=== PATIENT | female | born 1990 | race Caucasian/White ===

== ENCOUNTER → 2017-01-12 | Outpatient (CLI) | payer BC, MEDICAID ==
--- NOTE | 2017-01-12 13:35 | Diagnostic Imaging Report ---
EXAMINATION: PET-CT. TECHNIQUE: Serum glucose level at the time of the study is: 97 mg/dL. 11.5 mCi of FDG was administered intravenously followed by obtaining PET images with corresponding noncontrast CT scan images. The CT scan was performed for anatomic correlation and attenuation correction and was not performed according to the diagnostic protocol of the areas covered. The scan was performed from the head to mid thighs. INDICATION: Cervical cancer initial staging. FINDINGS: Physiologic uptake in the brain is noted in a symmetric fashion. Activity in the neck and the orbits and the nasopharynx and oral cavity does not appear to correlate with a concerning soft tissue mass and is probably physiologic. There are also somewhat symmetric areas of activity seen in fatty tissue in the neck and upper chest compatible with brown fat activity with no evidence of metastasis. No suspicious hypermetabolic mass in the chest is seen. In the abdomen and pelvis, there is an intensely hypermetabolic mass seen in the area of the cervix with a maximum SUV of 20. This appears to correlate with fullness in the region of the cervix seen on CT scan with rough correlating measurements of 5 x 4 cm. Other areas of activity seen in the anterior abdominal wall are related to postsurgical changes from recent section with no suspicious hypermetabolic regional lymph node or metastatic mass in the abdomen or pelvis seen. Urinary tract activity is related to tracer excretion is noted in the bladder, kidneys, and ureters. IMPRESSION: Intensely hypermetabolic mass with approximate axial measurements of 5 x 4 cm in the region of the cervix is suggestive of an underlying cervical cancer neoplasm with no evidence of regional lymphadenopathy or metastatic disease. Dictated by: Dictated on workstation # [id number]
== END ==
LOC: RAD 09:33 → EDUNIT# 09:45
PROVIDERS: ATTEND Obstetrics & Gynecology Gynecologic Oncology
DX: C53.9 Malignant neoplasm of cervix uteri, unspecified (principal)

== ENCOUNTER 2017-01-15 12:25 | Outpatient (RCR) | payer BC, MEDICAID ==
[2017-01-15 14:51] LABS: BASOPHILS % (AUTO) 0 % (0-10); EOSINOPHILS # (AUTO) 0.2 10^3/uL (0.0-0.3); EOSINOPHILS % (AUTO) 2 % (0-10); LYMPHOCYTES # (AUTO) 2.4 X 10^3 (1.0-4.0); LYMPHOCYTES % (AUTO) 23 % (12-44); MEAN CORPUSCULAR HEMOGLOBIN 30 PG (25-34); MEAN CORPUSCULAR HGB CONC 33 G/DL (32-36); MEAN CORPUSCULAR VOLUME 91 FL (80-99); MEAN PLATELET VOLUME 9.6 FL (7.4-10.4); MONOCYTES # (AUTO) 0.7 X 10^3 (0.0-1.0); MONOCYTES % (AUTO) 7 % (0-12); NEUTROPHILS # (AUTO) 7.2 X 10^3 (1.8-7.8); NEUTROPHILS % (AUTO) 68 % (42-75); PLATELET COUNT 319 10^3/uL (130-400); RED CELL DISTRIBUTION WIDTH 11.9 % (10.0-14.5); WHITE BLOOD COUNT 10.5 10^3/uL (4.3-11.0)
[2017-01-15 15:08] LABS: ALANINE AMINOTRANSFERASE 27 U/L (0-55); ANION GAP 10 MMOL/L (5-14); ASPARTATE AMINO TRANSFERASE 22 U/L (5-34); BILIRUBIN,TOTAL 0.4 MG/DL (0.1-1.0); BLOOD UREA NITROGEN 11 MG/DL (7-18); BUN/CREATININE RATIO 14; CALCIUM 9.4 MG/DL (8.5-10.1); CARBON DIOXIDE 24 MMOL/L (21-32); CHLORIDE 106 MMOL/L (98-107); CREATININE SERUM 0.78 MG/DL (0.60-1.30); GFR ESTIMATED > 60; GLUCOSE 85 MG/DL (70-105); SODIUM 140 MMOL/L (135-145); TOTAL PROTEIN 7.9 GM/DL (6.4-8.2)
== END 2017-01-16 | disposition home or self-care (01) ==
LOC: ONC 12:25
PROVIDERS: ATTEND Internal Medicine Hematology & Oncology
DX: C53.9 Malignant neoplasm of cervix uteri, unspecified (principal)
CPT/HCPCS: 36415; 80053; 85025; 86304; 99214

== ENCOUNTER 2017-01-20 13:13 | Outpatient (CLI) | payer BC, MEDICAID ==
[~2017-01-20] VITALS: Ht 165.1 cm; Wt 81.2 kg
== END 2017-01-20 15:05 ==
LOC: PREOP 13:13
PROVIDERS: ATTEND Surgery
DX: Z95.828 Presence of other vascular implants and grafts; Z01.818 Encounter for other preprocedural examination

== ENCOUNTER 2017-01-21 09:34 | Day surgery (SDC) | payer BC, MEDICAID ==
[~2017-01-21] VITALS: Ht 165.1 cm; Wt 81.2 kg
--- OUTSIDE RECORDS SUMMARY | 2017-01-21 09:39 | XMS REPORT ---
Author Author Stella Bullock [facility] Address [address] [place], [place] [id number] Care Team Providers Care Tap And Die Maker Technician Name Role Phone Stella Bullock PCP Unavailable MarlynprestonJeimy curielerine PreferredProvider [phone] Allergies and Adverse Reactions Name Reaction Notes NO KNOWN DRUG ALLERGIES Plan of Treatment Planned Activity Comments Planned Date Planned Time Plan/Goal Ultrasound, OB complete >14 weeks 09/07/2016 12:00 AM *Thin layer pap with reflex to HPV ; cervical/vaginal (ThinPrep or Surepath) 09/02/2016 12:00 AM Gonorrhea 09/02/2016 12:00 AM Chlamydia 09/02/2016 12:00 AM HIV-1 antibody 09/02/2016 12:00 AM UA with Culture and Sensitivity 09/02/2016 12:00 AM panel (CBC with differential, automated, Hepatitis B surface antigen ( HBsAg), Rubella antibody, RBC antibody screen, Blood typing (ABO and Rh(D), RPR w/ Reflex to TP 09/02/2016 12:00 AM HEPATITIS C AB 09/02/2016 12:00 AM TRICHOMONAS AMPLIFIED 09/02/2016 12:00 AM Medications Name Start Date Expiration Date SIG Comments Viberzi 75 mg oral tablet 05/21/2016 08/19/2016 take 1 tablet (75 mg) by oral route 2 times per day for 30 days Discontinued Name Start Date Discontinued Date SIG Comments labetalol Oral Tablet 100 mg 07/09/2014 take 1 tablet (100 mg) by oral route 2 times per day Oral 07/09/2014 amoxicillin Oral Capsule 500 mg 07/09/2014 Seasonique 0.15 mg-30 mcg (84)/10 mcg (7) oral tablets,dose pack,3 month 201609/02/2016 take 1 tablet by oral route once daily for 90 days Problem List Description Status Onset Polycystic Ovaries Active 07/09/2014 Ovarian Cyst Active 07/09/2014 Vital Signs Date Time BP-Sys(mm[Hg] BP-Kate(mm[Hg]) HR(bpm) RR(rpm) Temp WT HT HC BMI BSA BMI Percentile O2 Sat(%) 09/02/2016 2:32:00 PM 136 mmHg 85 mmHg 123 bpm 98.7 F 180.5 lbs 65 in 30.04 kg/m2 1.94 m2 99 % 07/08/2016 2:10:00 PM 142 mmHg 86 mmHg 112 bpm 98.9 F 180.5 lbs 65 in 30.0365 kg/m 1.9377 m 05/21/2016 2:47:00 PM 118 mmHg 70 mmHg 82 bpm 18 rpm 98.4 F 180.375 lbs 65 in 30.02 kg/m2 1.94 m2 99 % 07/09/2014 9:21:00 AM 124 mmHg 70 mmHg 80 bpm 97.8 F 186 lbs 65 in 30.9517 kg/m 1.967 m 07/28/2011 9:10:00 AM 110 mmHg 70 mmHg 120 bpm 98.6 F 171.375 lbs 96 % 07/20/2011 11:11:00 AM 118 mmHg 75 mmHg 98 bpm 97.5 F 166.25 lbs 97 % 07/13/2011 12:12:00 PM 100 mmHg 78 mmHg 95 bpm 97.4 F 165.25 lbs 98 % 06/29/2011 10:26:00 AM 95 mmHg 65 mmHg 85 bpm 97.6 F 162.375 lbs 98 % 06/15/2011 11:07:00 AM 112 mmHg 65 mmHg 71 bpm 97.8 F 157.5 lbs 100 % 05/18/2011 11:25:00 AM 120 mmHg 70 mmHg 109 bpm 97.9 F 150.25 lbs 98 % 04/14/2011 3:39:00 PM 100 bpm 97.8 F 142 lbs 98 % 04/09/2011 2:34:00 PM 100 mmHg 60 mmHg 88 bpm 98.4 F 141.375 lbs 98 % 03/17/2011 5:04:00 PM 98 mmHg 65 mmHg 103 bpm 98.5 F 100 % 03/09/2011 4:38:00 PM 110 mmHg 70 mmHg 96 bpm 98.9 F 135.375 lbs 99 % 02/24/2011 4:14:00 PM 118 mmHg 60 mmHg 123 bpm 98.3 F 135.125 lbs 99 % Social History Name Description Comments Alcohol Use - Occasional Caffeine Never Tobacco Never smoker History of Procedures Date Ordered Description Order Status 04/14/2011 12:00 AM HERPES SIMPLEX 2 AG IF Reviewed 04/14/2011 12:00 AM HERPES SIMPLEX 1 AG IF Reviewed 05/18/2011 12:00 AM GLUCOSE TEST Reviewed 05/18/2011 12:00 AM METABOLIC PANEL TOTAL CA Reviewed 06/29/2011 12:00 AM COMPREHEN METABOLIC PANEL Reviewed 06/29/2011 12:00 AM CULTURE OTHR SPECIMN AEROBIC Reviewed 06/29/2011 12:00 AM ROUTINE VENIPUNCTURE Reviewed 07/16/2016 12:00 AM OB US >/=14 WKS SNGL FETUS Reviewed 04/14/2011 12:00 AM BIOPSY SKIN LESION Reviewed 07/09/2014 12:00 AM CHORIONIC GONADOTROPIN TEST Reviewed 07/09/2014 12:00 AM US EXAM PELVIC COMPLETE Reviewed 07/09/2014 12:00 AM ASSAY OF PROLACTIN Reviewed 07/09/2014 12:00 AM IMMUNOASSAY TUMOR CA 125 Reviewed 07/09/2014 12:00 AM LACTATE (LD) (LDH) ENZYME Reviewed 07/09/2014 12:00 AM ALPHA-FETOPROTEIN SERUM Reviewed Results Summary Date and Description Results 04/14/2011 11:32 AM SOURCE: VAGINAL 05/18/2011 12:31 PM GLUCOSE 69.0 mg/dLSODIUM 138.0 mmol/LPOTASSIUM 3.80 mmol/ LCHLORIDE 107.0 mmol/LCO2 19.0 mmol/LBUN 7.0 mg/dLCREATININE 0.50 mg/dLCALCIUM 9.0 mg/dLAGE 21 GFR NonAA 157 GFR AA 190 eGFR >60 mL/min/1.73 m2eGFR AA* >60 06/24/2011 12:35 PM WBC 10.1 RBC 3.78 HGB 11.90 g/dLHCT 34.50 %MCV 91.0 fLMCH 31.50 pgMCHC 34.50 g/dLRDW SD 40 RDW CV 12.10 %MPV 9.80 fLPLT 189 NRBC# 0.00 NRBC% 0.0 %NEUT 75.20 %%LYMP 16.90 %%MONO 7.10 %%EOS 0.60 %%BASO 0.20 %#NEUT 7.59 #LYMP 1.71 #MONO 0.72 #EOS 0.06 #BASO 0.02 MANUAL DIFF NOT IND RUBELLA 34.0 IU/mL 06/29/2011 12:55 PM GLUCOSE 83.0 mg/dLSODIUM 135.0 mmol/LPOTASSIUM 4.20 mmol/ LCHLORIDE 105.0 mmol/LCO2 19.0 mmol/LBUN 9.0 mg/dLCREATININE 0.60 mg/dLSGOT/AST 17.0 IU/LSGPT/ALT 11.0 IU/LALK PHOS 147.0 IU/LTOTAL PROTEIN 6.10 g/dLALBUMIN 3.60 g/dLTOTAL BILI 0.50 mg/dLCALCIUM 9.70 mg/dLAGE 21 GFR NonAA 127 GFR AA 154 eGFR >60 mL/min/1.73 m2eGFR AA* >60 07/09/2014 10:30 AM LDH 160.0 IU/LBETA HCG QUANT <1 MIU/MLLH 14.50 mIU/ mLProlactin 16.0 ng/mLCancer Antigen (CA) 125 12.20 U/mLAFP, Serum, Tumor Marker 1.60 ng/mL History Of Immunizations Not available. History of Past Illness Name Date of Onset Comments Anxiety Mitral Valve Disorders Polycystic Ovaries 07/09/2014 Ovarian Cyst 07/09/2014 Depression Vertigo Headache UTI Weight Change Numbness and Tingling Fractured bone PCOS (polycystic ovarian syndrome) , First Normal Apr 09 2011 2:35PM Condyloma Acuminatum Apr 09 2011 2:35PM Vaginal Lesion Apr 14 2011 4:28PM , First Normal Feb 24 2011 4:11PM , First Normal May 18 2011 11:36AM Leg cramps May 18 2011 11:36AM Mitral Valve Prolapse Mar 09 2011 4:34PM , First Normal Jun 29 2011 10:28AM , First Normal Jul 13 2011 12:14PM , First Normal Jul 28 2011 9:12AM , First Normal Jun 15 2011 11:16AM , First Normal Mar 17 2011 4:59PM Vulvar Lesion Apr 21 2011 10:00AM Left ovarian cyst Jul 09 2014 10:03AM Abnormal Uterine Bleeding Jul 09 2014 9:30AM Polycystic Ovaries Jul 09 2014 9:30AM Left Ovarian cyst Jul 09 2014 9:30AM Irritability Jul 09 2014 9:30AM PCOS (polycystic ovarian syndrome) May 21 2016 2:49PM Irritable bowel syndrome with diarrhea May 21 2016 2:49PM Amenorrhea May 21 2016 2:49PM Acute pelvic pain, female Jul 08 2016 3:12PM History of ovarian cyst Jul 08 2016 3:12PM PCOS (polycystic ovarian syndrome) Jul 08 2016 2:14PM Adnexal tenderness, left Jul 08 2016 2:14PM IBS (irritable bowel syndrome) Jul 08 2016 2:14PM Normal in multigravida in second trimester Sep 02 2016 2:50PM , confirmed, not first Sep 02 2016 2:38PM Late care affecting in second trimester Sep 02 2016 2: 38PM Payers Insurance Name Company Name Plan Name Plan Number Policy Number Policy Group Number Start Date BCBS [employer] [place] [id number] N/A Aetna [facility] [place] [id number] Thursday, 2011 BCBS [employer] [place] [id number] N/A History of Encounters Visit Date Visit Type Provider 09/02/2016 Office visit Stella Bullock SPECIAL PROCEDURE TECHNOLOGIST 07/08/[address] Paula Case MD 05/21/2016 Office visit Jeimy Garcia SPECIAL PROCEDURE TECHNOLOGIST 07/09/2014 Office visit 07/09/2014 Office visit Matt Travis MD 08/04/2011 [facility] David Izquierdo MD 07/28/2011 Office visit David Izquierdo MD 07/20/2011 Office visit David Izquierdo MD 07/13/2011 Office visit David Izquierdo MD 06/29/2011 Office visit David Izquierdo MD 06/15/2011 Office visit David Izquierdo MD 05/18/2011 Office visit David Izquierdo MD 04/14/2011 Procedures David Izquierdo MD 04/09/2011 Voided David Izquierdo MD 03/17/2011 Office visit David Izquierdo MD 03/09/2011 Office visit David Izquierdo MD 02/24/2011 Office visit David Izquierdo MD
--- OUTSIDE RECORDS SUMMARY | 2017-01-21 09:39 | XMS REPORT ---
Author Author Paula Case [facility] Address [address] [place], [place] [id number] Care Team Providers Care Primary Care Coordinator Name Role Phone Paula Case PCP Unavailable Jeimy Garciaerine PreferredProvider [phone] Allergies and Adverse Reactions Name Reaction Notes NO KNOWN DRUG ALLERGIES Plan of Treatment Planned Activity Comments Planned Date Planned Time Plan/Goal OB Complete Sono, Greater than or Equal to 14 weeks 07/16/2016 12:00 AM Medications Active Name Start Date Estimated Completion Date SIG Comments Seasonique 0.15 mg-30 mcg (84)/10 mcg (7) oral tablets,dose pack,3 month 201611/17/2016 take 1 tablet by oral route once daily for 90 days Viberzi 75 mg oral tablet 05/21/2016 08/19/2016 take 1 tablet (75 mg) by oral route 2 times per day for 30 days Discontinued Name Start Date Discontinued Date SIG Comments labetalol Oral Tablet 100 mg 07/09/2014 take 1 tablet (100 mg) by oral route 2 times per day Oral 07/09/2014 amoxicillin Oral Capsule 500 mg 07/09/2014 Problem List Description Status Onset Polycystic Ovaries Active 07/09/2014 Ovarian Cyst Active 07/09/2014 Vital Signs Date Time BP-Sys(mm[Hg] BP-Kate(mm[Hg]) HR(bpm) RR(rpm) Temp WT HT HC BMI BSA BMI Percentile O2 Sat(%) 07/08/2016 2:10:00 PM 142 mmHg 86 mmHg 112 bpm 98.9 F 180.5 lbs 65 in 30.04 kg/m2 1.94 m2 05/21/2016 2:47:00 PM 118 mmHg 70 mmHg 82 bpm 18 rpm 98.4 F 180.375 lbs 65 in 30.0157 kg/m 1.9371 m 99 % 07/09/2014 9:21:00 AM 124 mmHg 70 mmHg 80 bpm 97.8 F 186 lbs 65 in 30.95 kg/m2 1.97 m2 07/28/2011 9:10:00 AM 110 mmHg 70 mmHg [...] Reviewed 06/29/2011 12:00 AM ROUTINE VENIPUNCTURE Reviewed 04/14/2011 12:00 AM BIOPSY SKIN LESION Reviewed 07/09/2014 12:00 AM CHORIONIC GONADOTROPIN TEST Reviewed 07/09/2014 12:00 AM US EXAM PELVIC COMPLETE Reviewed 07/09/2014 12:00 AM ASSAY OF PROLACTIN Reviewed 07/09/2014 12:00 AM IMMUNOASSAY TUMOR CA 125 Reviewed 07/09/2014 12:00 AM LACTATE (LD) (LDH) ENZYME Reviewed 07/09/2014 12:00 AM ALPHA-FETOPROTEIN SERUM Reviewed Results Summary Data and Description Results 04/14/2011 11:32 AM SOURCE: [...] (irritable bowel syndrome) Jul 08 2016 2:14PM Payers Insurance Name Company Name Plan Name Plan Number Policy Number Policy Group Number Start Date [facility] [id number] N/A Aetna Aetna [facility] [id number] Thursday, 2011 BCBS [employer] [facility] [id number] N/A History of Encounters Visit Date Visit Type Provider 07/08/[address] Paula Case MD 05/21/2016 Office visit Jeimy Garcia APRN 07/09/2014 Office visit 07/09/2014 Office visit Matt Travis MD 08/04/2011 [facility] David Izquierdo MD 07/28/2011 Office visit [...]
--- OUTSIDE RECORDS SUMMARY | 2017-01-21 09:40 | XMS REPORT ---
Author Author Tej Dennis [facility] Address [address] [place], [place] [phone] Care Team Providers Care Etl Informatica Architect Name Role Phone Tej Dennis PCP Unavailable Jeimy Garcia PreferredProvider [phone] Allergies and Adverse Reactions Name Reaction Notes NO KNOWN DRUG ALLERGIES Plan of Treatment Planned Activity Comments Planned Date Planned Time Plan/Goal Ob Limited Sono 11/04/2016 12:00 AM Medications Active Name Start Date Estimated Completion Date SIG Comments Vitamin oral tablet take 1 tablet by oral route once daily Name Start Date Expiration Date SIG Comments [...] 04/14/2011 12:00 AM BIOPSY SKIN LESION Reviewed 09/07/2016 12:00 AM OB US >/=14 WKS SNGL FETUS Reviewed 09/02/2016 12:00 AM CYTOPATH C/V THIN LAYER Reviewed 09/02/2016 12:00 AM SPECIMEN HANDLING OFFICE-LAB Reviewed 09/02/2016 12:00 AM N.GONORRHOEAE DNA AMP PROB Reviewed 09/02/2016 12:00 AM CHLAMYDIA CULTURE Reviewed 09/02/2016 12:00 AM HIV-1ANTIBODY Reviewed 09/02/2016 12:00 AM URINALYSIS AUTO W/SCOPE Reviewed 09/02/2016 12:00 AM OBSTETRIC PANEL Reviewed 09/02/2016 12:00 AM HEPATITIS C AB TEST Reviewed 09/02/2016 12:00 AM Progenity Testing Reviewed 09/02/2016 12:00 AM TRICHOMONAS VAGINALIS AMPLIF Reviewed 10/28/2016 12:00 AM GLUCOSE TOLERANCE TEST (GTT) Returned 10/28/2016 12:00 AM COMPLETE CBC W/AUTO DIFF WBC Returned 07/09/2014 12:00 AM CHORIONIC GONADOTROPIN TEST Reviewed [...] 12.20 U/mLAFP, Serum, Tumor Marker 1.60 ng/mL 09/02/2016 3:45 PM HEPATITIS C 0.08 COLOR YELLOW APPEARANCE CLEAR SPEC GRAV >= 1.030 pH 5.5 PROTEIN TRACE GLUCOSE NEGATIVE mg/dLKETONE TRACE BILIRUBIN NEGATIVE BLOOD NEGATIVE NITRITE NEGATIVE LEUK SCREEN NEGATIVE WBC/HPF 0-5 RBC/ HPF NEGATIVE CASTS/LPF FEW HYALINE /LPFCRYSTALS NEGATIVE MUCOUS THRDS 2++ BACTERIA 1+ EPITH CELLS FEW SQUAMOUS /HPFTRICHOMONAS NEGATIVE YEAST NEGATIVE CULT ORDERED YES HIV AG/AB COMBO 0.10 WBC 10.3 RBC 4.29 HGB 12.80 g/dLHCT 37.70 %MCV 88.0 fLMCH 29.80 pgMCHC 34.0 g/dLRDW SD 38 RDW CV 12.0 %MPV 9.70 fLPLT 289 NRBC# 0.00 NRBC% 0.0 %NEUT 75.0 %%LYMP 17.30 %%MONO 5.60 %%EOS 0.70 %%BASO 0.40 %#NEUT 7.74 #LYMP 1.78 #MONO 0.58 #EOS 0.07 #BASO 0.04 MANUAL DIFF NOT IND RPR Non Reactive HBsAg Screen Negative Rubella Antibodies, IgG 3.33 Index 10/28/2016 3:25 PM WBC 10.9 RBC 4.06 HGB 12.40 g/dLHCT 37.0 %MCV 91.0 fLMCH 30.50 pgMCHC 33.50 g/dLRDW SD 40 RDW CV 12.10 %MPV 8.90 fLPLT 255 NRBC# 0.00 NRBC% 0.0 %NEUT 73.20 %%LYMP 16.90 %%MONO 6.80 %%EOS 0.70 %%BASO 0.30 %#NEUT 7.95 #LYMP 1.83 #MONO 0.74 #EOS 0.08 #BASO 0.03 MANUAL DIFF SEE BELOW SEGS 67 BANDS 16 LYMPHS 15 MONOS 2 ANISO 1+ History Of Immunizations Not available. History of [...] second trimester Sep 02 2016 2: 38PM Normal in multigravida in third trimester Oct 28 2016 2:43PM Pyelectasis of fetus on ultrasound Oct 28 2016 4:28PM Normal in multigravida in third trimester Oct 28 2016 4:28PM Payers Insurance Name Company Name Plan Name Plan Number Policy Number Policy Group Number Start Date BCBS [employer] [place] [id number] N/A Aetna [facility] [id number] Thursday, 2011 BCBS [employer] [place] [id number] N/A History of Encounters Visit Date Visit Type Provider 10/28/2016 Office visit Tej Dennis MD 09/21/[address] Paula Case MD 09/02/2016 Office visit Stella Bullock EBAY RESELLER 07/08/[address] Paula Case MD 05/21/2016 Office visit Jeimy Garcia EBAY RESELLER 07/09/2014 Office visit 07/09/2014 Office visit Matt Travis MD 08/04/2011 [facility] David Izquierdo MD 07/28/2011 Office [...]
--- OUTSIDE RECORDS SUMMARY | 2017-01-21 09:40 | XMS REPORT ---
Author Author Paula Case [facility] Address [address] [place], [place] [id number] Care Team Providers Care Wood Scaler Name Role Phone Paula Case PCP Unavailable Jeimy Garcia PreferredProvider [phone] Allergies and Adverse Reactions Name Reaction Notes NO KNOWN DRUG ALLERGIES Plan of Treatment Planned Activity Comments Planned Date Planned Time Plan/Goal TRICHOMONAS AMPLIFIED 09/02/2016 12:00 AM Medications Active Name Start Date [...] Reviewed 09/02/2016 12:00 AM Progenity Testing Reviewed 07/09/2014 12:00 AM CHORIONIC GONADOTROPIN TEST [...] Screen Negative Rubella Antibodies, IgG 3.33 Index History Of Immunizations Not available. History of [...] Number Policy Group Number Start Date BCBS [facility] [id number] N/A Aetna Aetna [facility] [id number] Thursday, 2011 [facility] [id number] N/A History of Encounters Visit Date Visit Type Provider 09/21/[address] Paula Case MD 09/02/2016 Office visit Stella Bullock RUMPER 07/08/[address] Paula Case MD 05/21/2016 Office visit Jeimy Garcia RUMPER 07/09/2014 Office visit 07/09/2014 Office visit Matt Travis MD 08/04/2011 [facility] David Izquierdo MD 07/28/2011 Office visit David [...]
--- OUTSIDE RECORDS SUMMARY | 2017-01-21 09:40 | XMS REPORT ---
Author Author Tej Dennis [facility] Address [address] [place], [place] [address] Care Team Providers Care Superintendent Mechanical Name Role Phone Tej Dennis PCP Unavailable Jeimy Garcia PreferredProvider [phone] Allergies and Adverse Reactions Name Reaction Notes NO KNOWN DRUG ALLERGIES Plan of Treatment Planned Activity Comments Planned Date Planned Time Plan/Goal Bile salts measurement 12/08/2016 12:00 AM Medications Active Name Start Date Estimated Completion Date SIG Comments Vitamin oral tablet take 1 tablet by oral route once daily hydroxyzine HCl 25 mg oral tablet 12/08/2016 12/22/2016 take 1 tablet by oral route once daily for 14 days. May increase dose to 1 tablet twice daily if itching persists. metronidazole 500 mg oral tablet 12/08/2016 12/15/2016 take 1 tablet by oral route 2 times a day for 7 days Name Start Date Expiration Date SIG Comments [...] HC BMI BSA BMI Percentile O2 Sat(%) 12/15/2016 3:51:00 PM 139 mmHg 95 mmHg 136 bpm 99.9 F 200 lbs 65 in 33.28 kg/m2 2.04 m2 99 % 09/02/2016 2:32:00 PM 136 mmHg 85 mmHg 123 bpm 98.7 F 180.5 lbs 65 in 30.0365 kg/m 1.9377 m 99 % 07/08/2016 2:10:00 PM 142 mmHg [...] 10/28/2016 12:00 AM GLUCOSE TOLERANCE TEST (GTT) Reviewed 10/28/2016 12:00 AM COMPLETE CBC W/AUTO DIFF WBC Reviewed 10/28/2016 12:00 AM Type and screen Reviewed 11/04/2016 12:00 AM OB US LIMITED FETUS(S) Reviewed 11/23/2016 12:00 AM TDAP VACCINE 7 YRS/> IM Reviewed 11/23/2016 12:00 AM IMMUNIZATION ADMIN Reviewed 12/08/2016 12:00 AM HEPATIC FUNCTION PANEL Returned 07/09/2014 12:00 AM CHORIONIC GONADOTROPIN TEST [...] 190 eGFR >60 mL/min/1.73 m2eGFR AA* >60 06/29/2011 12:55 PM GLUCOSE 83.0 mg/dLSODIUM 135.0 mmol/LPOTASSIUM 4.20 mmol/ LCHLORIDE 105.0 mmol/LCO2 19.0 mmol/LBUN 9.0 mg/dLCREATININE 0.60 mg/dLSGOT/AST 17.0 IU/LSGPT/ALT 11.0 IU/LALK PHOS 147.0 IU/LTOTAL PROTEIN 6.10 g/dLALBUMIN 3.60 g/dLTOTAL BILI 0.50 mg/dLCALCIUM 9.70 mg/dLAGE 21 GFR NonAA 127 GFR AA 154 eGFR >60 mL/min/1.73 m2eGFR AA* >60 07/09/2014 10:30 AM LDH 160.0 IU/LBETA HCG QUANT <1 MIU/MLProlactin 16.0 ng/ mLCancer Antigen (CA) 125 12.20 U/mLAFP, Serum, Tumor [...] MONOS 2 ANISO 1+ History Of Immunizations Name Date Admin Mfg Name Mfg Code Trade Name Lot# Route Inj Vis Given Vis Pub CVX Tdap 11/23/2016 Biographicon SKB BOOSTRIX [id number] Intramuscular Right Deltoid 11/23/2016 06/12/2014 115 History of Past Illness Name Date of [...] in third trimester Oct 28 2016 4:28PM Need for Tdap vaccine Nov 23 2016 3:37PM Diseases of the skin and subcutaneous tissue complicating , third trimester Dec 08 2016 2:40PM Pruritus, unspecified Dec 08 2016 2:40PM Payers Insurance Name Company Name Plan Name Plan Number Policy Number Policy Group Number Start Date BCBS [employer] [place] [id number] N/A [facility] [id number] Thursday, 2011 BCBS [employer] [facility] [id number] N/A History of Encounters Visit Date Visit Type Provider 12/15/2016 Office visit Tej Dennis MD 12/08/2016 Office visit Tej Dennis MD 11/23/2016 Office visit Tej Dennis MD 10/28/2016 Office visit Tej Dennis MD 09/21/[address] Paula Case MD 09/02/2016 Office visit Stella Bullock CONTACT LENS CUTTER 07/08/[address] Paula Case MD 05/21/2016 Office visit Jeimy Garcia CONTACT LENS CUTTER 07/09/2014 Office visit 07/09/2014 Office visit Matt Travis MD 08/04/2011 [facility] David Izquierdo MD 07/28/2011 Office visit [...]
--- OUTSIDE RECORDS SUMMARY | 2017-01-21 09:41 | XMS REPORT ---
Author Author Tej Dennis [facility] Address [address] [place], [place] [id number] Care Team Providers Care Advanced Practice Nurse Name Role Phone Tej Dennis PCP Unavailable Jeimy Garcia PreferredProvider [phone] Allergies and Adverse Reactions Name Reaction Notes NO KNOWN DRUG ALLERGIES Plan of Treatment Planned Activity Comments Planned Date Planned Time Plan/Goal Cervical mass 01/01/2017 9:30 AM Medications Active Name Start Date Estimated Completion Date SIG Comments Vitamin oral tablet take 1 tablet by oral route once daily Name Start Date Expiration Date SIG Comments Viberzi 75 mg oral tablet 05/21/2016 08/19/2016 take 1 tablet (75 mg) by oral route 2 times per day for 30 days hydroxyzine HCl 25 mg oral tablet 12/08/2016 12/22/2016 take 1 tablet by oral route once daily for 14 days. May increase dose to 1 tablet twice daily if itching persists. metronidazole 500 mg oral tablet 12/08/2016 12/15/2016 take 1 tablet by oral route 2 times a day for 7 days Discontinued Name Start Date Discontinued Date [...] HC BMI BSA BMI Percentile O2 Sat(%) 12/24/2016 11:37:00 AM 141 mmHg 91 mmHg 100 bpm 99.4 F 183 lbs 65 in 30.45 kg/m2 1.95 m2 12/15/2016 3:51:00 PM 139 mmHg 95 mmHg 136 bpm 99.9 F 200 lbs 65 in 33.2814 kg/m 2.0397 m 99 % 09/02/2016 2:32:00 PM 136 mmHg [...] AM IMMUNIZATION ADMIN Reviewed 12/08/2016 12:00 AM MASS SPECTROMETRY QUANT Reviewed 12/08/2016 12:00 AM HEPATIC FUNCTION PANEL Reviewed 12/15/2016 12:00 AM CULTURE SCREEN ONLY Returned 12/24/2016 12:00 AM URINALYSIS AUTO W/SCOPE Returned 07/09/2014 12:00 AM CHORIONIC GONADOTROPIN TEST [...] 16 LYMPHS 15 MONOS 2 ANISO 1+ 12/08/2016 3:02 PM SGOT/AST 17.0 IU/LSGPT/ALT 17.0 IU/LALK PHOS 150.0 IU/ LTOTAL PROTEIN 7.0 g/dLALBUMIN 3.50 g/dLTOTAL BILI 0.40 mg/dLDIRECT BILI 0.20 mg /dLINDIRECT BILI 0.20 mg/dL History Of Immunizations Name Date Admin Mfg Name Mfg Code Trade Name Lot# Route Inj Vis Given Vis Pub CVX Tdap 11/23/2016 GlaxoSmimmatics biotechnologiesine SKB BOOSTRIX [id number] Intramuscular Right Deltoid 11/23/2016 [...] 2:40PM Pruritus, unspecified Dec 08 2016 2:40PM screening for streptococcus B Dec 15 2016 4:16PM Encounter for full-term uncomplicated delivery Dec 15 2016 3:52PM Outcome of delivery, unspecified Dec 15 2016 3:52PM Liver and biliary tract disorders in , third trimester Dec 15 2016 3 :52PM Obstruction of bile duct Dec 15 2016 3:52PM Cervical mass Dec 15 2016 3:52PM 36 weeks gestation of Dec 15 2016 3:52PM Dysuria Dec 24 2016 11:41AM Post- Follow-Up Dec 24 2016 11:41AM Payers Insurance Name Company Name Plan Name Plan Number Policy Number Policy Group Number Start Date BCBS [employer] [place] [id number] N/A [facility] Comm Plan of [id number] N/A Aetna Aetna [facility] [id number] Thursday, 2011 BCBS [employer] [place] [id number] N/A History of Encounters Visit Date Visit Type Provider 12/24/2016 Office visit Tej Dennis MD 12/16/[address] [facility] [address] Paula Case MD 12/15/2016 Office visit Tej Dennis MD 12/08/2016 Office visit Tej Dennis MD 11/23/2016 Office visit Tej Dennis MD 10/28/2016 Office visit Tej Dennis MD 09/21/[address] Paula Case MD 09/02/2016 Office visit Stella Bullock MANGA ARTIST 07/08/[address] Paula Case MD 05/21/2016 Office visit Jeimy Garcia MANGA ARTIST 07/09/2014 Office visit 07/09/2014 Office visit Matt [...]
--- OUTSIDE RECORDS SUMMARY | 2017-01-21 09:42 | XMS REPORT ---
Author Author Tej Dennis [facility] Address [address] [place], [place] [phone] Care Team Providers Care Talent Development Coordinator Name Role Phone Tej Dennis PCP Unavailable Jeimy Garcia PreferredProvider [phone] Allergies and Adverse Reactions Name Reaction Notes NO KNOWN DRUG ALLERGIES Plan of Treatment Planned Activity Comments Planned Date Planned Time Plan/Goal Bile salts measurement 12/08/2016 12:00 AM Group B strep culture 12/15/2016 12:00 AM Medications Active Name Start Date [...] Vis Given Vis Pub CVX Tdap 11/23/2016 GlaxDobango SKB BOOSTRIX [id number] Intramuscular Right Deltoid 11/23/2016 [...] weeks gestation of Dec 15 2016 3:52PM Payers Insurance Name Company Name Plan Name Plan Number Policy Number Policy Group Number Start Date [facility] [id number] N/A Aetna [facility] [id number] Thursday, 2011 BCBS [employer] [place] [id number] N/A History of Encounters Visit Date Visit Type Provider 12/15/2016 Office visit Tej Dennis MD 12/08/2016 Office visit Tej Dennis MD 11/23/2016 Office visit Tej Dennis MD 10/28/2016 Office visit Tej Dennis MD 09/21/[address] Paula Case MD 09/02/2016 Office visit Stella Bullock ACID TANK LINER 07/08/[address] Paula Case MD 05/21/2016 Office visit Jeimy Garcia ACID TANK LINER 07/09/2014 Office visit 07/09/2014 Office visit Matt [...]
--- OUTSIDE RECORDS SUMMARY | 2017-01-21 09:42 | XMS REPORT ---
Author Author Tej Dennis [facility] Address [address] [place], [place] [address] Care Team Providers Care Bobbin Washer Name Role Phone Tej Dennis PCP Unavailable Jeimy Garcia PreferredProvider [phone] Allergies and Adverse Reactions Name Reaction Notes NO KNOWN DRUG ALLERGIES Plan of Treatment Planned Activity Comments Planned Date Planned Time Plan/Goal GLUCOSE 50 gm 10/28/2016 12:00 AM CBC With Auto Differential 10/28/2016 12:00 AM Medications Active Name Start Date [...] 09/02/2016 12:00 AM TRICHOMONAS VAGINALIS AMPLIF Reviewed 07/09/2014 12:00 AM CHORIONIC GONADOTROPIN TEST [...] in third trimester Oct 28 2016 2:43PM Payers Insurance Name Company Name Plan Name Plan Number Policy Number Policy Group Number Start Date [facility] [id number] N/A Aetna Aetna [facility] [id number] Thursday, 2011 BCBS Bcbs [facility] [id number] N/A History of Encounters Visit Date Visit Type Provider 10/28/2016 Office visit Tej Dennis MD 09/21/[address] Paula Case MD 09/02/2016 Office visit Stella Bullock ELEVATED GUARD 07/08/[address] Paula Case MD 05/21/2016 Office visit Jeimy Ghazala Garcia ELEVATED GUARD 07/09/2014 Office visit 07/09/2014 Office visit Matt [...]
--- OUTSIDE RECORDS SUMMARY | 2017-01-21 09:42 | XMS REPORT ---
Author Author Stella Bullock [facility] Address [address] [place], [place] [address] Care Team Providers Care Electrical Project Engineer Name Role Phone Stella Bullock PCP Unavailable MarlynprestonJeimy curielerine PreferredProvider [phone] Allergies and Adverse Reactions Name Reaction Notes [...] Group Number Start Date BCBS [employer] [place] [id number] N/A Aetna [facility] [id number] Thursday, 2011 BCBS [employer] [place] [id number] N/A History of Encounters Visit Date Visit Type Provider 09/02/2016 Office visit Stella Bullock FINANCIAL OPERATIONS CLERK 07/08/[address] Paula Case MD 05/21/2016 Office visit Jeimy Garcia FINANCIAL OPERATIONS CLERK 07/09/2014 Office visit 07/09/2014 Office visit Matt Travis MD 08/04/2011 [facility] David Izquierdo MD 07/28/2011 Office visit [...]
--- OUTSIDE RECORDS SUMMARY | 2017-01-21 09:43 | XMS REPORT ---
Author Author Paula Case [facility] Address [address] [place], [place] [address] Care Team Providers Care Watershed Program Manager Name Role Phone Paula Case PCP Unavailable Jeimy Garciaerine PreferredProvider [phone] Allergies and Adverse Reactions Name Reaction Notes NO KNOWN DRUG ALLERGIES Plan of Treatment Planned Activity Comments Planned Date Planned Time Plan/Goal Transabdominal / Transvaginal US (non-OB) 07/10/2016 12:00 AM Transabdominal / Transvaginal US (non-OB) 07/10/2016 12:00 AM Medications Active Name Start Date [...] Number Policy Group Number Start Date BCBS [facility] [id number] N/A Aetna [facility] [id number] Thursday, 2011 BCBS Bcbs [facility] [id number] N/A History of Encounters Visit Date Visit Type Provider 07/08/[address] Paula Case MD 05/21/2016 Office visit Jeimy Garcia APRN 07/09/2014 Office visit 07/09/2014 Office visit Matt Travis MD 08/04/2011 [facility] David Izquierdo MD 07/28/2011 Office visit [...]
--- OUTSIDE RECORDS SUMMARY | 2017-01-21 09:44 | XMS REPORT ---
Author Author Tej Dennis [facility] Address [address] [place], [place] [address] Care Team Providers Care Public Welfare Director Name Role Phone Tej Dennis PCP Unavailable Jeimy Garcia PreferredProvider [phone] Allergies and Adverse Reactions Name Reaction Notes [...] Group Number Start Date BCBS [employer] [place] [id number] N/A Aetna Aetna [facility] [id number] Thursday, 2011 BCBS [employer] [place] [id number] N/A History of Encounters Visit Date Visit Type Provider 10/28/2016 Office visit Tej Dennis MD 09/21/[address] Paula Case MD 09/02/2016 Office visit Stella Bullock CLOUD SOLUTIONS ARCHITECT 07/08/[address] Paula Case MD 05/21/2016 Office visit Jeimy Garcia CLOUD SOLUTIONS ARCHITECT 07/09/2014 Office visit 07/09/2014 Office visit Matt [...]
--- OUTSIDE RECORDS SUMMARY | 2017-01-21 09:44 | XMS REPORT | Continuity of Care Document ---
Author Author [email or web address] Organization [email or web address] Address Unknown Phone Unavailable Care Team Providers Care Steam Clothes Press Operator Name Role Phone Jeimy Morel PCP Unavailable Allergies, Adverse Reactions, Alerts Substance Reaction Severity Status Substance Type Unknown Medications Medication Instructions Dosage Effective Dates (start - stop) Status Comments Flagyl 500 mg tablet take 1 tablet by oral route every 12 hours 500 MG - Active ibuprofen 800 mg tablet take 1 tablet by oral route 3 times every day with food 800 MG - Active Problems Condition Effective Dates (start - stop) Clinical Status Other specified noninflammatory disorders of cervix uteri Other specified noninflammatory disorders of cervix uteri Vaginal Discharge or Lesion Vaginal Discharge or Lesion Cervical Cancer, Ectocervix Cervical Cancer, Ectocervix Mitral Valve Prolapse Active Irritable Bowel Syndrome Active Irregular Bleeding Active Procedures Procedure Date Unknown Results Test Name Date and Time Measure Units Reference Range Abnormal Flag Comments Panel Description: Cytology report of Cervical or vaginal smear or scraping Cyto stain.thin prep Document Panel Description: Cytology report of Cervical or vaginal smear or scraping Cyto stain.thin prep Pap Smear 14:00:38 See scanned report. Advance Directives Directive Yes / No Effective Date File Name Unknown Encounters Encounter Description Practice Location Reason(s) For Visit Diagnoses Date Provider Care Team Members [email or web address], [address], [place], [place], [address], [place] tel: [phone] [facility] Cervical Cancer, Ectocervix Jaleel Gaxiola. [address] [place], [place], [address], [place]. tel:[phone] Referring Provider: Tej Dennis, [address], [place], [address]. tel:[phone] [facility], [address], [place], [place], [address], [place] tel: [phone] [facility] Cervical Cancer, Ectocervix Jaleel [place]ax[address]ola. [address] [place], [address], [place]. tel:[phone] Referring Provider: Tej Dennis, [address], [place], [address]. tel:[phone] [facility], [address], [place], [place], [address], [place] tel: [phone] [facility] Other specified noninflammatory disorders of cervix uteriOther specified noninflammatory disorders of cervix uteriVaginal Discharge or LesionVaginal Discharge or Lesion Jaleel Gaxiola. [address] [place], [place], [address], [place]. tel:[phone] Referring Provider: Vickie Andrade [address], [place], [address]. tel:[phone] [facility], [address], [place], [place], [address], [place] tel: [phone] [facility] Ivy Sotelo. [address], [address], [place]. tel:[phone] Family History Family Member Diagnosis Age At Onset Paternal Grandmother Breast Cancer No family history of Colon Cancer No family history of Ovarian Cancer Paternal Grandfather Diabetes No family history of Osteoporosis No family history of Kidney Disease No family history of Hypertension No family history of Thyroid Disorder Paternal Grandfather Cardiovascular Disease No family history of Stroke No family history of Epilepsy No family history of Lung Disease Immunizations Vaccine Date Status Comments Unknown Payers Payer name Insurance type Covered libertarian ID Authorization(s) [place] [id number] Social History Type Description Quantity Date Captured Alcohol Use Details Unknown Caffeine Use Details Unknown Tobacco Use Status Unknown Smoking Status Unknown Vital Signs Date / Time: Height Weight BMI Pulse Rate Blood Pressure Temperature Respiratory Rate Body Surface Area Head Circumference BMI percentile Unknown Chief Complaint And Reason For Visit Unknown Chief Complaint And Reason For Visit Reason For Referral Reason For Referral Unknown Plan Of Care Date Type Action Status Future Order: Radiology Order PET/CT Scan Skull Base to Mid- thigh ([id number]) Ordered Date Type Problem Goal Intervention Status Start Date Unknown. History Of Present Illness Encounter Date Complaint History Of Present Illness This patient has no known history of present illness Functional Status Encounter Date Functional Assessment Cognitive Assessment Unknown Medications Administered Medication Instructions Dosage Effective Dates (start - stop) Status Comments Drug Treatment Unknown Instructions Date Instruction Additional Information Unknown
--- OUTSIDE RECORDS SUMMARY | 2017-01-21 09:44 | XMS REPORT ---
Author Author Tej Dennis [facility] Address [address] [place], [place] [address] Care Team Providers Care Handbook Writer Name Role Phone Tej Dennis PCP Unavailable Jeimy Garcia PreferredProvider [phone] Allergies and Adverse Reactions Name Reaction Notes NO KNOWN DRUG ALLERGIES Plan of Treatment Planned Activity Comments Planned Date Planned Time Plan/Goal Bile salts measurement 12/08/2016 12:00 AM Liver function panel 12/08/2016 12:00 AM Medications Active Name Start [...] Reviewed 11/23/2016 12:00 AM IMMUNIZATION ADMIN Reviewed 07/09/2014 12:00 AM CHORIONIC GONADOTROPIN TEST [...] 16 LYMPHS 15 MONOS 2 ANISO 1+ 11/18/2016 11:47 AM AMNISURE ROM NEGATIVE 11/18/2016 12:07 PM COLOR YELLOW APPEARANCE CLEAR SPEC GRAV 1.020 pH 6.0 PROTEIN TRACE GLUCOSE NEGATIVE mg/dLKETONE NEGATIVE BILIRUBIN NEGATIVE BLOOD NEGATIVE NITRITE NEGATIVE LEUK SCREEN SMALL MICRO INDICATED? SEE BELOW WBC/HPF 10-20 RBC/HPF NEGATIVE CASTS/LPF NEGATIVE /LPFCRYSTALS NEGATIVE MUCOUS THRDS 1+ BACTERIA 1+ EPITH CELLS 1+ SQUAMOUS /HPFTRICHOMONAS NEGATIVE YEAST NEGATIVE CULT SET UP? YES History Of Immunizations Name Date Admin Mfg Name Mfg Code Trade Name Lot# Route Inj Vis Given Vis Pub CVX Tdap 11/23/2016 GlaxoSmithKline SKB BOOSTRIX [id number] Intramuscular Right Deltoid 11/23/2016 [...] Policy Number Policy Group Number [facility] Date [facility] [id number] N/A Aetna Aetna [facility] [id number] Thursday, 2011 [facility] [id number] N/A History of Encounters Visit Date Visit Type Provider 12/08/2016 Office visit Tej Dennis MD 11/23/2016 Office visit Tej Dennis MD 10/28/2016 Office visit Tej Dennis MD 09/21/[address] Paula Case MD 09/02/2016 Office visit Stella Bullock FINAL BLOCK PRESS OPERATOR 07/08/[address] Paula Case MD 05/21/2016 Office visit Jeimy AlfonsoKeagan Clineprestonmoisés FINAL BLOCK PRESS OPERATOR 07/09/2014 Office visit 07/09/2014 Office visit Matt [...]
--- OUTSIDE RECORDS SUMMARY | 2017-01-21 09:45 | XMS REPORT ---
Author Author Tej Dennis [facility] Address [address] [place], [place] [address] Care Team Providers Care Legal Support Analyst Name Role Phone Tej Dennis PCP Unavailable Jeimy Garcia PreferredProvider [phone] Allergies and Adverse Reactions Name Reaction Notes [...] Group Number Start Date BCBS [employer] [place] [id number] N/A Aetna [facility] [id number] Thursday, 2011 BCBS [employer] [place] [id number] N/A History of Encounters Visit Date Visit Type Provider 10/28/2016 Office visit Tej Dennis MD 09/21/[address] Paula Case MD 09/02/2016 Office visit Stella Bullock DEVOPS ARCHITECT 07/08/[address] Paula Case MD 05/21/2016 Office visit Jeimy Garcia DEVOPS ARCHITECT 07/09/2014 Office visit 07/09/2014 Office visit Matt Travis MD 08/04/2011 [facility] David Izquierdo MD 07/28/2011 Office visit [...]
--- OUTSIDE RECORDS SUMMARY | 2017-01-21 09:45 | XMS REPORT ---
Author Author Tej Dennis [facility] Address [address] [place], [place] [phone] Care Team Providers Care Self Propelled Hot Mix Roller Operator Name Role Phone Tej Dennis PCP Unavailable Jeimy Garcia PreferredProvider [phone] Allergies and Adverse Reactions Name Reaction Notes [...] Vis Given Vis Pub CVX Tdap 11/23/2016 GlaxAuterra SKB BOOSTRIX [id number] Intramuscular Right Deltoid 11/23/2016 [...] for streptococcus B Dec 15 2016 4:16PM Payers Insurance Name Company Name Plan Name Plan Number Policy Number Policy Group Number Start Date BCBS Bcbs [facility] [id number] N/A Aetna [facility] [id number] Thursday, 2011 BCBS Bcbs [facility] [id number] N/A History of Encounters Visit Date Visit Type Provider 12/15/2016 Office visit Tej Dennis MD 12/08/2016 Office visit Tej Dennis MD 11/23/2016 Office visit Tej Dennis MD 10/28/2016 Office visit Tej Dennis MD 09/21/[address] Paula Case MD 09/02/2016 Office visit Stella Bullock SCRAP DROP OPERATOR 07/08/[address] Paula Case MD 05/21/2016 Office visit Jeimy Garcia SCRAP DROP OPERATOR 07/09/2014 Office visit 07/09/2014 Office visit Matt Travis MD 08/04/2011 [facility] David Izquierdo MD 07/28/2011 Office [...]
--- OUTSIDE RECORDS SUMMARY | 2017-01-21 09:46 | XMS REPORT ---
Author Author Paula Case [facility] Address [address] [place], [place] [address] Care Team Providers Care Cardiopulmonary Supervisor Name Role Phone Paula Case PCP Unavailable Jeimy Garcia PreferredProvider [phone] Allergies and Adverse Reactions Name Reaction Notes [...] Number Policy Group Number Start Date BCBS [facility] [id number] N/A Aetna Aetna [facility] [id number] Thursday, 2011 [facility] [id number] N/A History of Encounters Visit Date Visit Type Provider 09/21/[address] Paula Case MD 09/02/2016 Office visit Stella Bullock PROFESSOR OF LEGAL STUDIES 07/08/[address] Paula Case MD 05/21/2016 Office visit Jeimy Garcia PROFESSOR OF LEGAL STUDIES 07/09/2014 Office visit 07/09/2014 Office visit Matt Travis MD 08/04/2011 [facility] David Izquierdo MD 07/28/2011 Office visit [...]
--- OUTSIDE RECORDS SUMMARY | 2017-01-21 09:46 | XMS REPORT ---
Author Author Stella Bullock [facility] Address [address] [place], [place] [address] Care Team Providers Care Physician Intensivist Name Role Phone Stella Bullock PCP Unavailable MarlynprestonJeimy curielerine PreferredProvider [phone] Allergies and Adverse Reactions Name Reaction Notes [...] Number Start Date BCBS Bcbs [employer] [place] [id number] N/A Aetna [facility] [id number] Thursday, 2011 BCBS [employer] [place] [id number] N/A History of Encounters Visit Date Visit Type Provider 09/02/2016 Office visit Stella Bullock DRYING CAN WORKER 07/08/[address] Paula Case MD 05/21/2016 Office visit Jeimy Garcia DRYING CAN WORKER 07/09/2014 Office visit 07/09/2014 Office visit Matt Travis MD 08/04/2011 [facility] David Izquierdo MD 07/28/2011 [...]
--- OUTSIDE RECORDS SUMMARY | 2017-01-21 09:47 | XMS REPORT ---
Author Author Paula Case Organization [facility] Address [address] [place], [place] [address] Care Team Providers Care Truss Designer Name Role Phone Paula Case PCP Unavailable Jeimy Garciaerine PreferredProvider [phone] Allergies and Adverse Reactions Name Reaction Notes NO KNOWN DRUG ALLERGIES Plan of Treatment Planned Activity Comments Planned Date Planned Time Plan/Goal Bile salts measurement 12/08/2016 12:00 AM Group B strep culture 12/15/2016 12:00 AM Cervical mass 01/01/2017 9:30 AM Medications Active Name Start Date Estimated Completion Date SIG Comments Vitamin oral tablet take 1 tablet by oral route once daily hydroxyzine HCl 25 mg oral tablet 12/08/2016 12/22/2016 take 1 tablet by oral route once daily for 14 days. May increase dose to 1 tablet twice daily if itching persists. Name Start Date Expiration Date SIG Comments Viberzi 75 mg oral tablet 05/21/2016 08/19/2016 take 1 tablet (75 mg) by oral route 2 times per day for 30 days metronidazole 500 mg oral tablet 12/08/2016 12/15/2016 [...] Vis Given Vis Pub CVX Tdap 11/23/2016 GlaxBounce Mobile SKB BOOSTRIX [id number] Intramuscular Right Deltoid 11/23/2016 [...] Group Number Start Date BCBS [employer] [place] [id number] N/A [facility] Plan of [id number] N/A Aetna Aetna [facility] [id number] Thursday, 2011 BCBS [employer] [place] [id number] N/A History of Encounters Visit Date Visit Type Provider 12/16/[address] Paula Case MD 12/15/2016 Office visit Tej Dennis MD 12/08/2016 Office visit Tej Dennis MD 11/23/2016 Office visit Tej Dennis MD 10/28/2016 Office visit Tej Dennis MD 09/21/[address] Paula Case MD 09/02/2016 Office visit Stella Bullock INFORMATICS PHYSICIAN LIAISON 07/08/[address] Paula Case MD 05/21/2016 Office visit Jeimy Dotsonshyanneclaire INFORMATICS PHYSICIAN LIAISON 07/09/2014 Office visit 07/09/2014 Office visit Matt [...]
--- OUTSIDE RECORDS SUMMARY | 2017-01-21 09:47 | XMS REPORT ---
Author Author Tej Dennis [facility] Address [address] [place], [place] [address] Care Team Providers Care Skein Winding Operator Name Role Phone Tej Dennis PCP Unavailable Jeimy Garcia PreferredProvider [phone] Allergies and Adverse Reactions Name Reaction Notes [...] Policy Number Policy Group Number [facility] Date [facility] [id number] N/A Aetna Aetna [facility] [place] [facility] [id number] Thursday, 2011 [facility] [id number] N/A History of Encounters Visit Date Visit Type Provider 12/08/2016 Office visit Tej Dennis MD 11/23/2016 Office visit Tej Dennis MD 10/28/2016 Office visit Tej Dennis MD 09/21/[address] Paula Case MD 09/02/2016 Office visit Stella Bullock COLD STORAGE SUPERVISOR 07/08/[address] Paula Case MD 05/21/2016 Office visit Jeimy AlfonsoKeagan Clineprestonmoisés COLD STORAGE SUPERVISOR 07/09/2014 Office visit 07/09/2014 Office visit Matt [...]
--- OUTSIDE RECORDS SUMMARY | 2017-01-21 09:48 | XMS REPORT ---
Author Author Tej Dennis [facility] Address [address] [place], [place] [address] Care Team Providers Care Cow Tester Name Role Phone Tej Dennis PCP Unavailable Jeimy Garcia PreferredProvider [phone] Allergies and Adverse Reactions Name Reaction Notes NO KNOWN DRUG ALLERGIES Plan of Treatment Not available. Medications Active Name Start Date Estimated Completion [...] 12:00 AM OB US LIMITED FETUS(S) Reviewed 07/09/2014 12:00 AM CHORIONIC GONADOTROPIN TEST [...] CULT SET UP? YES History Of Immunizations Not available. History of [...] Policy Group Number Start Date BCBS Bcbs [facility] [id number] N/A [facility] [id number] Thursday, 2011 BCBS Bcbs [facility] [id number] N/A History of Encounters Visit Date Visit Type Provider 11/23/2016 Office visit Tej Dennis MD 10/28/2016 Office visit Tej Dennis MD 09/21/[address] Paula Case MD 09/02/2016 Office visit Stella Bullock CUSTOMS OFFICER 07/08/[address] Paula Case MD 05/21/2016 Office visit Jeimy Garcia CUSTOMS OFFICER 07/09/2014 Office visit 07/09/2014 Office visit Matt Travis MD 08/04/2011 [facility] David Izquierdo MD 07/28/2011 Office visit David [...]
--- OUTSIDE RECORDS SUMMARY | 2017-01-21 09:48 | XMS REPORT ---
Author Author Tej Dennis [facility] Address [address] [place], [place] [address] Care Team Providers Care Waste Minimization Technician Name Role Phone Tej Dennis PCP Unavailable Jeimy Garcia PreferredProvider [phone] Allergies and Adverse Reactions Name Reaction Notes NO KNOWN DRUG ALLERGIES Plan of Treatment Planned Activity Comments Planned Date Planned Time Plan/Goal Cervical mass 01/01/2017 9:30 AM Medications Active Name Start Date Estimated Completion Date SIG Comments clindamycin HCl 300 mg oral capsule 01/11/2017 take 1 capsule by oral route 3 times a day for 7 days Name Start Date Expiration Date SIG Comments Viberzi 75 mg oral tablet 05/21/2016 08/19/2016 take 1 tablet (75 mg) by oral route 2 times per day for 30 days Vitamin oral tablet take 1 tablet by oral route once daily hydroxyzine HCl 25 mg oral tablet 12/08/2016 12/22/2016 take 1 tablet by oral route once daily for 14 days. May increase dose to 1 tablet twice daily if itching persists. Discontinued Name Start Date Discontinued Date SIG Comments labetalol Oral Tablet 100 mg 07/09/2014 take 1 tablet (100 mg) by oral route 2 times per day Oral 07/09/2014 amoxicillin Oral Capsule 500 mg 07/09/2014 Seasonique 0.15 mg-30 mcg (84)/10 mcg (7) oral tablets,dose pack,3 month 201609/02/2016 take 1 tablet by oral route once daily for 90 days metronidazole 500 mg oral tablet 12/08/2016 01/11/2017 take 1 tablet by oral route 2 times a day for 7 days metronidazole 500 mg oral tablet 12/08/2016 01/11/2017 take 1 tablet by oral route 2 times a day for 7 days Medication change for other infection Problem List Description Status Onset Polycystic Ovaries Active 07/09/2014 Ovarian Cyst Active 07/09/2014 Vital Signs Date Time BP-Sys(mm[Hg] BP-Kate(mm[Hg]) HR(bpm) RR(rpm) Temp WT HT HC BMI BSA BMI Percentile O2 Sat(%) 01/11/2017 1:39:00 PM 147 mmHg 89 mmHg 99 bpm 99.3 F 183 lbs 65 in 30.45 kg/m2 1.95 m2 12/24/2016 11:37:00 AM 141 mmHg 91 mmHg 100 bpm 99.4 F 183 lbs 65 in 30.4525 kg/m 1.9511 m 12/15/2016 3:51:00 PM 139 mmHg 95 mmHg [...] Reviewed 12/15/2016 12:00 AM CULTURE SCREEN ONLY Reviewed 12/24/2016 12:00 AM URINALYSIS AUTO W/SCOPE Reviewed 01/11/2017 12:00 AM CULTURE OTHR SPECIMN AEROBIC Returned 01/11/2017 12:00 AM WOUND SRFC CULTURETECH USED Returned 01/11/2017 12:00 AM TECH OTHER THAN SURFC CULTR Returned 07/09/2014 12:00 AM CHORIONIC GONADOTROPIN TEST [...] BILI 0.20 mg /dLINDIRECT BILI 0.20 mg/dL 12/17/2016 9:55 AM Strep Gp B СЕРГЕЙ Negative 12/24/2016 12:21 PM COLOR YELLOW APPEARANCE CLEAR SPEC GRAV 1.010 pH 5.5 PROTEIN NEGATIVE GLUCOSE NEGATIVE mg/dLKETONE NEGATIVE BILIRUBIN NEGATIVE BLOOD NEGATIVE NITRITE NEGATIVE LEUK SCREEN NEGATIVE WBC/HPF RARE RBC/HPF RARE CASTS/ LPF NEGATIVE /LPFCRYSTALS NEGATIVE MUCOUS THRDS NEGATIVE BACTERIA FEW EPITH CELLS FEW SQUAMOUS /HPFTRICHOMONAS NEGATIVE YEAST NEGATIVE CULT SET UP? NO History Of Immunizations Name Date Admin Mfg [...] 11:41AM Post- Follow-Up Dec 24 2016 11:41AM Wound infection after surgery, initial encounter Jan 11 2017 1:41PM Payers Insurance Name Company Name Plan Name Plan Number Policy Number Policy Group Number Start Date BCBS [facility] [facility] [place] [id number] N/A [facility] - Community [facility] Comm [id number] N/A [facility] Comm Plan of [id number] N/A [facility] [id number] Thursday, 2011 BCBS [employer] [place] [id number] N/A History of Encounters Visit Date Visit Type Provider 01/11/2017 Office visit 01/11/2017 Office visit 01/11/2017 Office visit Tej Dennis MD 12/24/2016 Office visit Tej Dennis MD 12/16/[address] [facility] [address] Paula Case MD 12/15/2016 Office visit Tje Dennis MD 12/08/2016 Office visit Tej Dennis MD 11/23/2016 Office visit Tej Dennis MD 10/28/2016 Office visit Tej Dennis MD 09/21/[address] Paula Case MD 09/02/2016 Office visit Stella Bullock LAYUP WORKER 07/08/[address] Paula Case MD 05/21/2016 Office visit Jeimy Vivar Marlynprestonshyanneclaire LAYUP WORKER 07/09/2014 Office visit 07/09/2014 Office visit [...]
--- OUTSIDE RECORDS SUMMARY | 2017-01-21 09:49 | XMS REPORT ---
Author Author Stella Bullock [facility] Address [address] [place], [place] [phone] Care Team Providers Care Chaser Helper Name Role Phone Stella Bullock PCP Unavailable MarlynprestonJeimy curielerine PreferredProvider [phone] Allergies and Adverse Reactions Name Reaction Notes NO KNOWN DRUG ALLERGIES Plan of Treatment Not available. Medications Name Start Date Expiration Date SIG [...] Number Policy Group Number Start Date BCBS [facility] [id number] N/A Aetna Aetna [facility] [id number] Thursday, 2011 BCBS [facility] [id number] N/A History of Encounters Visit Date Visit Type Provider 09/02/2016 Office visit Stella Bullock FLOOR HAND 07/08/[address] Paula Case MD 05/21/2016 Office visit Jeimy Garcia FLOOR HAND 07/09/2014 Office visit 07/09/2014 Office visit Matt Travis MD 08/04/2011 [facility] David Izquierdo MD 07/28/2011 Office [...]
--- OUTSIDE RECORDS SUMMARY | 2017-01-21 09:49 | XMS REPORT ---
Author Author Tej Dennis [facility] Address [address] [place], [place] [address] Care Team Providers Care Cuff Turner Machine Operator Name Role Phone Tej Dennis PCP Unavailable Jeimy Garcia PreferredProvider [phone] Allergies and Adverse Reactions Name Reaction Notes [...] Number Policy Group Number Start Date BCBS [facility] [id number] N/A Aetna Aetna [facility] [id number] Thursday, 2011 [facility] [id number] N/A History of Encounters Visit Date Visit Type Provider 10/28/2016 Office visit Tej Dennis MD 09/21/[address] Paula Case MD 09/02/2016 Office visit Stella Bullock DUTY MANAGER 07/08/[address] Paula Case MD 05/21/2016 Office visit Jeimy Ghazala Garcia DUTY MANAGER 07/09/2014 Office visit 07/09/2014 Office visit Matt Travis MD 08/04/2011 [facility] David Izquierdo MD 07/28/2011 Office visit [...]
--- OUTSIDE RECORDS SUMMARY | 2017-01-21 09:50 | XMS REPORT ---
Author Author Paula Case Organization [facility] Address [address] [place], [place] [address] Care Team Providers Care Manager Social Responsibility Name Role Phone Paula Case PCP Unavailable Jeimy Garcia PreferredProvider [phone] Allergies and Adverse Reactions Name Reaction Notes [...] Vis Given Vis Pub CVX Tdap 11/23/2016 [employer] SKB BOOSTRIX [id number] Intramuscular Right Deltoid 11/23/2016 [...] Group Number Start Date BCBS [employer] [place] [id number] N/A [facility] Community Plan of [facility] Plan of [id number] N/A Aetna Aetna [facility] [id number] Thursday, 2011 BCBS [employer] [place] [id number] N/A History of Encounters Visit Date Visit Type Provider 12/16/[address] Paula Case MD 12/15/2016 Office visit Tej Dennis MD 12/08/2016 Office visit Tej Dennis MD 11/23/2016 Office visit Tej Dennis MD 10/28/2016 Office visit Tej Dennis MD 09/21/[address] Paula Case MD 09/02/2016 Office visit Stella Bullock HVAC TECHNICIAN RESIDENTIAL 07/08/[address] Paula Case MD 05/21/2016 Office visit Jeimy Vivar Marlynprestonmoisés HVAC TECHNICIAN RESIDENTIAL 07/09/2014 Office visit 07/09/2014 Office visit Matt [...]
--- OUTSIDE RECORDS SUMMARY | 2017-01-21 09:50 | XMS REPORT | Continuity of Care Document ---
Author Author [facility] Organization [facility] Address [address] [place], [place] [address] Phone Care Team Providers Care Joint Terminal Attack Controller Name Role Phone Jeimy Morel PCP Unavailable [...] Discharge or Lesion Vaginal Discharge or Lesion Mitral Valve Prolapse Active Irritable Bowel Syndrome Active Irregular Bleeding Active Procedures Procedure Date Biopsy, Single Or Multiple, Or Local Excision Of Lesion, W/wo Fulguration Trichomonas Vaginal, Direct Probe Christie, Vaginal Direct Probe Gardnerella, Vaginal Direct Probe Office/outpatient visit,maurisio camargo Results Test Name Date and Time Measure Units Reference Range Abnormal Flag Comments Unknown Advance Directives Directive Yes / No Effective Date File Name Unknown Encounters Encounter Description Practice Location Reason(s) For Visit Diagnoses Date Provider Care Team Members Office/outpatient visit,maurisio camargo [facility], [address], [place], [place], [id number], tel:[phone] [facility] [place] Cervical mass (chief complaint) Other specified noninflammatory disorders of cervix uteriOther specified noninflammatory disorders of cervix uteriVaginal Discharge or LesionVaginal Discharge or Lesion [facility]. [address] [place], [place], [address], [place]. tel:[phone] Referring Provider: Tej Dennis, [address], [place], [address]. tel:[phone] Family History Family Member Diagnosis Age At [...] Unknown Payers Payer name Insurance type Covered constitution party ID Authorization(s) BS [place] [id number] Social History Type Description Quantity Date Captured Alcohol Use Details Caffeine Use Details Tobacco Use Status Never smoked tobacco Smoking Status Never smoker Non-Smoking Tobacco Use Details : No Details Available : No Details Available Vital Signs Date / Time: Height Weight BMI Pulse Rate Blood Pressure Temperature Respiratory Rate Body Surface Area Head Circumference BMI percentile 9:45 AM 65.00 in 180.00 lbs 29.95 kg/meter(2) 72 /min 120/90 mm[Hg] Chief Complaint And Reason For Visit Most recent encounter only, dated '01/01/2017 09:30'. Cervical mass (chief complaint). Description: Initial consult on 01/01/17. Referred by Dr. Dennis for cervical mass. Patient had pap smear on 09/02/2016 that was negative. Pap smear on 12/16/16 showing HSIL. Patient had a on 12/16/16 due to cervical mass. Patient states that this is her abnormal pap smear. She states that her menstrual cycles have always been irregular. She has vaginal discharge now. She thinks that she may have an infection. She does have an odor x 3 days. No itching or burning. No abdominal or pelvic pain. Normal bowel and bladder function prior to . Appetite is stable. She denies any pain or spotting with intercourse prior to . Reason For Referral Reason For Referral Unknown Plan Of Care Date Type Action Status Unknown. Date Type Problem Goal Intervention Status Start Date Unknown. History Of Present Illness Encounter Date Complaint History Of Present Illness Cervical mass Initial consult on 01/01/17. Referred by Dr. Dennis for cervical mass. Patient had pap smear on 09/02/2016 that was negative. Pap smear on 12/16/16 showing HSIL. Patient had a on 12/16/16 due to cervical mass. Patient states that this is her abnormal pap smear. She states that her menstrual cycles have always been irregular. She has vaginal discharge now. She thinks that she may have an infection. She does have an odor x 3 days. No itching or burning. No abdominal or pelvic pain. Normal bowel and bladder function prior to . Appetite is stable. She denies any pain or spotting with intercourse prior to . Functional Status Encounter Date Functional Assessment Cognitive Assessment Unknown Medications Administered Medication Instructions Dosage Effective Dates (start - stop) Status Comments Drug Treatment Unknown Instructions Date Instruction Additional Information Unknown
--- OUTSIDE RECORDS SUMMARY | 2017-01-21 09:50 | XMS REPORT ---
Author Author Paula Case [facility] Address [address] [place], [place] [address] Care Team Providers Care Residential Coordinator Name Role Phone Paula Case PCP Unavailable Jeimy Garciaerine PreferredProvider [phone] Allergies and Adverse Reactions Name Reaction Notes [...] Start Date BCBS [facility] [id number] N/A [facility]na [facility] [id number] Thursday, 2011 BCBS [facility] [id number] N/A History of Encounters Visit Date Visit Type Provider 07/08/[address] Paula Case MD 05/21/2016 Office visit Jeimy Garcia SYRUP MIXER HELPER 07/09/2014 Office visit 07/09/2014 Office visit Matt Travis MD 08/04/2011 [facility] David Izquierdo MD 07/28/2011 Office visit [...]
--- OUTSIDE RECORDS SUMMARY | 2017-01-21 09:51 | XMS REPORT ---
Author Author Tej Dennis [facility] Address [address] [place], [place] [address] Care Team Providers Care Bill Hiker Name Role Phone Tej Dennis PCP Unavailable Jeimy Garcia PreferredProvider [phone] Allergies and Adverse Reactions Name Reaction Notes [...] Number Policy Group Number Start Date [facility] [id number] N/A Aetna Aetna [facility] [id number] Thursday, 2011 BCBS Bcbs [facility] [id number] N/A History of Encounters Visit Date Visit Type Provider 10/28/2016 Office visit Tej Dennis MD 09/21/[address] Paula Case MD 09/02/2016 Office visit Stella Bullock EQUIPMENT OPERATOR WAREHOUSE 07/08/[address] Paula Case MD 05/21/2016 Office visit Jeimy Ghazala Garcia EQUIPMENT OPERATOR WAREHOUSE 07/09/2014 Office visit 07/09/2014 Office visit Matt [...]
--- OUTSIDE RECORDS SUMMARY | 2017-01-21 09:52 | XMS REPORT ---
Author Author Tej Dennis [facility] Address [address] [place], [place] [address] Care Team Providers Care Body Hanger Name Role Phone Tej Dennis PCP Unavailable Jeimy Garcia PreferredProvider [phone] Allergies and Adverse Reactions Name Reaction Notes [...] Vis Given Vis Pub CVX Tdap 11/23/2016 [employer] SKB BOOSTRIX [id number] Intramuscular Right Deltoid 11/23/2016 [...] Policy Group Number Start Date BCBS Bcbs [facility] [id number] N/A Aetna [facility] [id number] Thursday, 2011 BCBS Bcbs [facility] [id number] N/A History of Encounters Visit Date Visit Type Provider 12/15/2016 Office visit Tej Dennis MD 12/08/2016 Office visit Tej Dennis MD 11/23/2016 Office visit Tej Dennis MD 10/28/2016 Office visit Tej Dennis MD 09/21/[address] Paula Case MD 09/02/2016 Office visit Stella Bullock TAPER AND FLOATER 07/08/[address] Paula Case MD 05/21/2016 Office visit Jeimy Garcia TAPER AND FLOATER 07/09/2014 Office visit 07/09/2014 Office visit Matt [...]
--- OUTSIDE RECORDS SUMMARY | 2017-01-21 09:52 | XMS REPORT ---
Author Author Paula Case [facility] Address [address] [place], [place] [address] Care Team Providers Care Heel Attacher Wood Name Role Phone Paula Case PCP Unavailable Jeimy Garciaerine PreferredProvider [phone] Allergies and Adverse Reactions Name Reaction Notes [...] Number Policy Group Number Start Date [facility] [id number] N/A Aetna Aetna [facility] [id number] Thursday, 2011 BCBS Bcbs [facility] [id number] N/A History of Encounters Visit Date Visit Type Provider 07/08/[address] Paula Case MD 05/21/2016 Office visit Jeimy Garcia APRN 07/09/2014 Office visit 07/09/2014 Office visit Matt Travis MD 08/04/2011 [facility] David Izquierdo MD 07/28/2011 Office [...]
--- OUTSIDE RECORDS SUMMARY | 2017-01-21 09:53 | XMS REPORT ---
Author Author Tej Dennis [facility] Address [address] [place], [place] [address] Care Team Providers Care Technical Inspector Name Role Phone Tej Dennis PCP Unavailable Jeimy Garcia PreferredProvider [phone] Allergies and Adverse Reactions Name Reaction Notes [...] Vis Given Vis Pub CVX Tdap 11/23/2016 [employer] SKB BOOSTRIX [id number] Intramuscular Right Deltoid 11/23/2016 [...] for Tdap vaccine Nov 23 2016 3:37PM Payers Insurance Name Company Name Plan Name Plan Number Policy Number Policy Group Number Start Date [facility] [id number] N/A [facility] [id number] Thursday, 2011 BCBS Bcbs [facility] [id number] N/A History of Encounters Visit Date Visit Type Provider 12/08/2016 Office visit Tej Dennis MD 11/23/2016 Office visit Tej Dennis MD 10/28/2016 Office visit Tej Dennis MD 09/21/[address] Paula Case MD 09/02/2016 Office visit Stella Bullock TENTER FRAME OPERATOR 07/08/[address] Paula Case MD 05/21/2016 Office visit Jeimy AlfonsoKeagan Clineprestonmoisés TENTER FRAME OPERATOR 07/09/2014 Office visit 07/09/2014 Office visit Matt Travis MD 08/04/2011 [facility] David Izquierdo MD 07/28/2011 Office [...]
--- OUTSIDE RECORDS SUMMARY | 2017-01-21 09:53 | XMS REPORT ---
Author Author Stella Bullock [facility] Address [address] [place], [place] [address] Care Team Providers Care Clerk Specialist Name Role Phone Stella Bullock PCP Unavailable Jeimy Garcia PreferredProvider [phone] Allergies and Adverse Reactions Name Reaction Notes NO KNOWN DRUG ALLERGIES Plan of Treatment Planned Activity Comments Planned Date Planned Time Plan/Goal Ultrasound, OB complete >14 weeks 09/07/2016 12:00 AM Medications Name Start Date Expiration [...] in second trimester Sep 02 2016 2:50PM Payers Insurance Name Company Name Plan Name Plan Number Policy Number Policy Group Number Start Date [facility] [id number] N/A Aetna Aetna [facility] [id number] Thursday, 2011 [facility] [id number] N/A History of Encounters Visit Date Visit Type Provider 09/02/2016 Office visit Stella Bullock CERTIFIED MASTER SAFECRACKER 07/08/[address] Paula Case MD 05/21/2016 Office visit Jeimy AlfonsoKeagan Garcia CERTIFIED MASTER SAFECRACKER 07/09/2014 Office visit 07/09/2014 Office visit Matt [...]
--- OUTSIDE RECORDS SUMMARY | 2017-01-21 09:54 | XMS REPORT ---
Author Author Tej Dennis [facility] Address [address] [place], [place] [address] Care Team Providers Care Chicken Picker Name Role Phone Tej Dennis PCP Unavailable Jeimy Garcia PreferredProvider [phone] Allergies and Adverse Reactions Name Reaction Notes NO KNOWN DRUG ALLERGIES Plan of Treatment Planned Activity Comments Planned Date Planned Time Plan/Goal Wound culture 01/11/2017 12:00 AM Cervical mass 01/01/2017 9:30 AM Medications Active Name Start Date Estimated Completion Date SIG Comments Vitamin oral tablet take 1 tablet by oral route once daily clindamycin HCl 300 mg oral capsule 01/11/2017 01/18/2017 take 1 capsule by oral route 3 [...] 12/24/2016 12:00 AM URINALYSIS AUTO W/SCOPE Reviewed 07/09/2014 12:00 AM CHORIONIC GONADOTROPIN TEST [...] Group Number Start Date BCBS [employer] [place] [id number] N/A [facility] - Community Plan [facility]HC Comm [id number] N/A [facility] Community Plan [facility] Comm Plan of [id number] N/A [facility] [id number] Thursday, 2011 BCBS [employer] [place] [id number] N/A History of Encounters Visit Date Visit Type Provider 01/11/2017 Office visit 01/11/2017 Office visit 01/11/2017 Office visit Tej Dennis MD 12/24/2016 Office visit Tej Dennis MD 12/16/2016 [facility] [address] Paula Case MD 12/15/2016 Office visit Tej Dennis MD 12/08/2016 Office visit Tej Dennis MD 11/23/2016 Office visit Tej Dennis MD 10/28/2016 Office visit Tej Dennis MD 09/21/[address] Paula Case MD 09/02/2016 Office visit Stella Bullock COMPACTING MACHINE OPERATOR/TENDER 07/08/[address] Paula Case MD 05/21/2016 Office visit Jeimy Ghazala Garcia COMPACTING MACHINE OPERATOR/TENDER 07/09/2014 Office visit 07/09/2014 Office visit Matt [...]
--- OUTSIDE RECORDS SUMMARY | 2017-01-21 09:55 | XMS REPORT ---
Author Author Paula Case [facility] Address [address] [place], [place] [address] Care Team Providers Care Early Interventionist Name Role Phone Paula Case PCP Unavailable Jeimy Garciaerine PreferredProvider [phone] Allergies and Adverse Reactions Name Reaction Notes [...] Number Policy Group Number Start Date BCBS [facility] [id number] N/A Aetna Aetna [facility] [id number] Thursday, 2011 [facility] [id number] N/A History of Encounters Visit Date Visit Type Provider 09/21/[address] Paula Case MD 09/02/2016 Office visit Stella Bullock BILINGUAL SALES REPRESENTATIVE 07/08/[address] Paula Case MD 05/21/2016 Office visit Jeimy Garcia BILINGUAL SALES REPRESENTATIVE 07/09/2014 Office visit 07/09/2014 Office visit Matt Travis MD 08/04/2011 [facility] David Izquierdo MD 07/28/2011 Office visit [...]
--- OUTSIDE RECORDS SUMMARY | 2017-01-21 09:55 | XMS REPORT ---
Author Author Paula Case [facility] Address [address] [place], [place] [address] Care Team Providers Care Registered Route Associate Name Role Phone Paula Case PCP Unavailable Jeimy Garcia PreferredProvider [phone] Allergies and Adverse Reactions Name Reaction Notes NO KNOWN DRUG ALLERGIES Plan of Treatment Planned Activity Comments Planned Date Planned Time Plan/Goal OB Complete Son[place], Less than 14 weeks 07/16/2016 12:00 AM Medications Active [...] Number Policy Group Number Start Date BCBS [facility] [id number] N/A [facility] [id number] Thursday, 2011 [facility] [id number] N/A History of Encounters Visit Date Visit Type Provider 07/08/[address] Paula Case MD 05/21/2016 Office visit Jeimy Garcia ELECTROFORMER 07/09/2014 Office visit 07/09/2014 Office visit Matt [...]
--- OUTSIDE RECORDS SUMMARY | 2017-01-21 09:56 | XMS REPORT ---
Author Author Tej Dennis [facility] Address [address] [place], [place] [id number] Care Team Providers Care Vocational Nurse Name Role Phone Tej Dennis PCP Unavailable Jeimy Garcia PreferredProvider [phone] Allergies and Adverse Reactions Name Reaction Notes [...] Vis Given Vis Pub CVX Tdap 11/23/2016 [employer] BOOSTRIX [id number] Intramuscular Right Deltoid 11/23/2016 [...] Number Policy Group Number [facility] Date [id number] N/A [facility] [id number] Thursday, 2011 BCBS Bcbs [facility] [id number] N/A History of Encounters Visit Date Visit Type Provider 11/23/2016 Office visit Tej Dennis MD 10/28/2016 Office visit Tej Dennis MD 09/21/[address] Paula Case MD 09/02/2016 Office visit Stella Bullock BRASS PLATER 07/08/[address] Paula Case MD 05/21/2016 Office visit Jeimy AlfonsoKeagan Garcia BRASS PLATER 07/09/2014 Office visit 07/09/2014 Office visit Matt Travis MD 08/04/2011 [facility] David Izquierdo MD 07/28/2011 Office [...]
--- OUTSIDE RECORDS SUMMARY | 2017-01-21 09:57 | XMS REPORT ---
Author Author Tej Dennis [facility] Address [address] [place], [place] [id number] Care Team Providers Care Fellmongering Machine Operator Name Role Phone Tej Dennis PCP Unavailable Jeimy Garcia PreferredProvider [phone] Allergies and Adverse Reactions Name Reaction Notes [...] Policy Group Number Start Date BCBS Bcbs [facility] [id number] N/A [facility]na [facility] [id number] Thursday, 2011 BCBS [facility]bs [facility] [id number] N/A History of Encounters Visit Date Visit Type Provider 11/23/2016 Office visit Tej Dennis MD 10/28/2016 Office visit Tej Dennis MD 09/21/[address] Paula Case MD 09/02/2016 Office visit Stella Bullock GRAD INTERN 07/08/[address] Paula Case MD 05/21/2016 Office visit Jeimy Garcia GRAD INTERN 07/09/2014 Office visit 07/09/2014 Office visit Matt Travis MD 08/04/2011 [facility] David Izquierdo MD 07/28/2011 Office visit [...]
--- OUTSIDE RECORDS SUMMARY | 2017-01-21 09:57 | XMS REPORT ---
Author Author Tej Dennis [facility] Address [address] [place], [place] [address] Care Team Providers Care Airport Shuttle Driver Name Role Phone Tej Dennis PCP Unavailable Jeimy Garcia PreferredProvider [phone] Allergies and Adverse Reactions Name Reaction Notes NO KNOWN DRUG ALLERGIES Plan of Treatment Planned Activity Comments Planned Date Planned Time Plan/Goal Boostrix vaccine 11/23/2016 12:00 AM Administration of single vaccine 2016 12:00 AM Medications Active Name Start Date [...] Number Policy Group Number Start Date BCBS [facility] [id number] N/A [facility] [id number] Thursday, 2011 BCBS Bcbs [facility] [id number] N/A History of Encounters Visit Date Visit Type Provider 11/23/2016 Office visit Tej Dennis MD 10/28/2016 Office visit Tej Dennis MD 09/21/[address] Paula Case MD 09/02/2016 Office visit Stella Bullock APRN 07/08/[address] Paula Csae MD 05/21/2016 Office visit Jeimy Garcia APRN 07/09/2014 Office visit 07/09/2014 Office visit Matt Travis MD 08/04/2011 [facility] David Izquierdo MD 07/28/2011 [...]
--- OUTSIDE RECORDS SUMMARY | 2017-01-21 09:58 | XMS REPORT ---
Author Author Tej Dennis [facility] Address [address] [place], [place] [address] Care Team Providers Care Steeplechase Jockey Name Role Phone Tej Dennis PCP Unavailable Jeimy Garcia PreferredProvider [phone] Allergies and Adverse Reactions Name Reaction Notes [...] NEGATIVE YEAST NEGATIVE CULT SET UP? YES 12/08/2016 3:02 PM SGOT/AST 17.0 IU/LSGPT/ALT 17.0 IU/LALK PHOS 150.0 IU/ LTOTAL PROTEIN 7.0 g/dLALBUMIN 3.50 g/dLTOTAL BILI 0.40 mg/dLDIRECT BILI 0.20 mg /dLINDIRECT BILI 0.20 mg/dL History Of Immunizations Name Date Admin Mfg Name Mfg Code Trade Name Lot# Route Inj Vis Given Vis Pub CVX Tdap 11/23/2016 [employer] SKB BOOSTRIX [id number] Intramuscular Right Deltoid 11/23/2016 [...] Group Number Start Date BCBS [employer] [place] [id number] N/A Aetna Aetna [facility] [id number] Thursday, 2011 BCBS [employer] [place] [id number] N/A History of Encounters Visit Date Visit Type Provider 12/08/2016 Office visit Tej Dennis MD 11/23/2016 Office visit Tej Dennis MD 10/28/2016 Office visit Tej Dennis MD 09/21/[address] Paula Case MD 09/02/2016 Office visit Stella Bullock CERTIFIED ATHLETIC TRAINER 07/08/[address] Paula Case MD 05/21/2016 Office visit Jeimy Garcia CERTIFIED ATHLETIC TRAINER 07/09/2014 Office visit 07/09/2014 Office visit Matt Travis MD 08/04/2011 [facility] David Izquierdo MD 07/28/2011 Office visit David Izquierdo MD 07/20/2011 Office visit David Izquierdo MD 07/13/2011 Office visit Daivd Izquierdo MD 06/29/2011 Office visit David Izquierdo MD 06/15/2011 Office visit David Izquierdo MD 05/18/2011 Office visit David Izquierdo MD 04/14/2011 Procedures David Izquierdo MD 04/09/2011 Voided David Izquierdo MD 03/17/2011 Office visit Dvaid Izquierdo MD 03/09/2011 Office visit David Izquierdo MD 02/24/2011 Office visit David Izquierdo MD
--- OUTSIDE RECORDS SUMMARY | 2017-01-21 09:58 | XMS REPORT | Continuity of Care Document ---
Author Author [facility] Organization [facility] Address Unknown Phone Unavailable Care Team Providers Care Technology Trainer Name Role Phone Jeimy Morel PCP Unavailable [...] smear or scraping Cyto stain.thin prep Document Advance Directives Directive Yes / No Effective Date File Name Unknown Encounters Encounter Description Practice Location Reason(s) For Visit Diagnoses Date Provider Care Team Members [facility], [address], [place], [address], [place] tel: [phone] [facility] Cervical Cancer, [employer] Jaleel Gaxiola. [address], [address], [place]. tel:[phone] Referring Provider: Tej Dennis, [address], [place], [address]. tel:[phone] [facility], [address], [place], [place], [address], [place] tel: [phone] [facility] Cervical Cancer, [employer] Jaleel Gaxiola. [address], [place], [address], [place]. tel:[phone] Referring Provider: Vickie Andrade [address], [place], [address]. tel:[phone] [facility], [address], [place], [address], [place] tel: [phone] [facility] Other specified noninflammatory disorders of cervix uteriOther specified noninflammatory disorders of cervix uteriVaginal Discharge or LesionVaginal Discharge or Lesion Jaleel Gaxiola. [address] [place], [place], [address], [place]. tel:[phone] Referring Provider: Vickie And[address], [place], [address]. tel:[phone] [facility], [address], [place], [address], [place] tel: [phone] [facility] Ivy Sotelo. [address], [place], [address], [place]. tel:[phone] Family History Family Member Diagnosis Age At [...] Unknown Payers Payer name Insurance type Covered alliance party ID Authorization(s) ZARA NGUYEN [id number] Social History Type Description Quantity Date Captured [...] PET/CT Scan Skull Base to Mid- thigh (39941) Ordered Date Type Problem Goal Intervention Status [...]
--- OUTSIDE RECORDS SUMMARY | 2017-01-21 09:59 | XMS REPORT ---
Author Author Paula Case Organization [facility] Address [address] [place], [place] [address] Care Team Providers Care Food Science Professor Name Role Phone Paula Case PCP Unavailable Jeimy Garciaerine PreferredProvider [phone] Allergies and Adverse Reactions Name Reaction Notes [...] Vis Given Vis Pub CVX Tdap 11/23/2016 [employer] SKB BOOSTRIX [id number] Intramuscular Right Deltoid 11/23/2016 [...] Start Date BCBS [facility] [place] [id number] N/A [facility] Plan of [id number] N/A Aetna Aetna [facility] [id number] Thursday, 2011 BCBS [facility] [facility] [place] [id number] N/A History of Encounters Visit Date Visit Type Provider 12/16/[address] Paula Case MD 12/15/2016 Office visit Tej Dennis MD 12/08/2016 Office visit Tej Dennis MD 11/23/2016 Office visit Tej Dennis MD 10/28/2016 Office visit Tej Dennis MD 09/21/[address] Paula Case MD 09/02/2016 Office visit Stella Bullock FERRYBOAT OPERATOR CABLE 07/08/[address] Paula Case MD 05/21/2016 Office visit Jeimy Dotsonshyanneclaire FERRYBOAT OPERATOR CABLE 07/09/2014 Office visit 07/09/2014 Office visit Matt [...]
--- OUTSIDE RECORDS SUMMARY | 2017-01-21 09:59 | XMS REPORT ---
Author Author Paula Case [facility] Address [address] [place], [place] [address] Care Team Providers Care County Attorney Name Role Phone Paula Case PCP Unavailable Jeimy Garciaerine PreferredProvider [phone] Allergies and Adverse Reactions Name Reaction Notes [...] of ovarian cyst Jul 08 2016 3:12PM Payers Insurance Name Company Name Plan Name Plan Number Policy Number Policy Group Number Start Date [facility] [id number] N/A Aetna [facility] [id number] Thursday, [id number]A History of Encounters Visit Date Visit Type Provider 07/08/[address] Paula Case MD 05/21/2016 Office visit Jeimy Garcia INDUSTRY CONSULTANT 07/09/2014 Office visit 07/09/2014 Office visit Matt [...]
--- OUTSIDE RECORDS SUMMARY | 2017-01-21 09:59 | XMS REPORT | Continuity of Care Document ---
Author Author [facility] Address Unknown Phone Unavailable Allergies Medications Medication Packaging Start Date Stop Date Route Dosage Sig FLAGYL Tablet 01/01/2017 take 1 tablet by oral route every 12 hours Problems Date Dx Coded Attending Type Code Diagnosis Diagnosed By 01/06/2017 Khalida Marmolejo C53.1 Cervical Cancer, Ectocervix 01/06/2017 Khalida Marmolejo C53.1 Cervical Cancer, Ectocervix Procedures Results Encounters ACCT No. Visit Date/Time Discharge Status Pt. Type Provider Facility Loc./Unit Complaint [id number] 12/24/2016 14:32:46 12/24/2016 23: 59:59 CLS Outpatient Tej Dennis [id number] 12/24/2016 12:11:06 12/24/2016 23: 59:59 CLS Outpatient Paula Case [id number] 12/16/2016 12:20:26 12/16/2016 23: 59:59 CLS Outpatient Paula Case [id number] 12/15/2016 17:16:03 12/15/2016 23: 59:59 CLS Outpatient Tej Dennis [id number] 12/08/2016 17:46:01 12/08/2016 23: 59:59 CLS Outpatient Tej Dennis [id number] 11/23/2016 17:51:20 11/23/2016 23: 59:59 CLS Outpatient Tej Dennis [id number] 10/28/2016 15:16:13 10/28/2016 23: 59:59 CLS Outpatient Tej Dennis [id number] 09/21/2016 17:39:23 09/21/2016 23: 59:59 CLS Outpatient Paula Case [id number] 09/02/2016 17:10:52 09/02/2016 23: 59:59 CLS Outpatient Stella Bullock [id number] 07/08/2016 16:51:16 07/08/2016 23: 59:59 CLS Outpatient Paula Case [id number] 05/21/2016 15:24:52 05/21/2016 23: 59:59 CLS Outpatient Juve Garcia [id number] 07/10/2014 08:51:07 07/10/2014 23: 59:59 CLS Outpatient Matt Travis [id number] 01/06/2017 10:54:00 01/06/2017 23 :59:59 CLS Outpatient Khalida Marmolejo [id number] 01/05/2017 16:29:00 01/05/2017 23 :59:59 CLS Outpatient Khalida Marmolejo [id number] 01/05/2017 12:57:00 01/05/2017 23 :59:59 CLS Outpatient Khalida Marmolejo [id number] 01/01/2017 09:30:00 01/01/2017 23 :59:59 CLS Outpatient Khalida Marmolejo [id number] 12/17/2016 12:18:00 12/17/2016 23 :59:59 CLS Outpatient Deepak Haynes
[2017-01-21] MEDS ORDERED: ceFAZolin 2 GM/50 ML NS 50 ML ONE (10:10)
[2017-01-21 10:35] LABS: BASOPHILS % (AUTO) 0 % (0-10); EOSINOPHILS # (AUTO) 0.1 10^3/uL (0.0-0.3); EOSINOPHILS % (AUTO) 2 % (0-10); LYMPHOCYTES # (AUTO) 1.7 X 10^3 (1.0-4.0); LYMPHOCYTES % (AUTO) 20 % (12-44); MEAN CORPUSCULAR HEMOGLOBIN 30 PG (25-34); MEAN CORPUSCULAR HGB CONC 33 G/DL (32-36); MEAN CORPUSCULAR VOLUME 91 FL (80-99); MEAN PLATELET VOLUME 10.6 FL (7.4-10.4); MONOCYTES # (AUTO) 0.8 X 10^3 (0.0-1.0); MONOCYTES % (AUTO) 9 % (0-12); NEUTROPHILS # (AUTO) 5.9 X 10^3 (1.8-7.8); NEUTROPHILS % (AUTO) 69 % (42-75); PLATELET COUNT 270 10^3/uL (130-400); RED BLOOD COUNT 4.43 10^6/uL (4.35-5.85); WHITE BLOOD COUNT 8.6 10^3/uL (4.3-11.0)
[2017-01-21 10:41] VITALS: BP 115/86
[2017-01-21] MEDS ORDERED: CATHETER FLUSH 10 ML SYR IV PRN ×2 (10:45→15:45)
[2017-01-21] MEDS ORDERED: ceFAZolin 2 GM/NS 50 ML IV ONE (10:45)
[2017-01-21] MEDS ORDERED: MIDAZOLAM 2 MG/2 ML (VERSED) VIAL ONE (11:30)
[2017-01-21] MEDS ORDERED: PROPOFOL INJECTION 50 ML IV ONE (11:30)
[2017-01-21] MEDS ORDERED: LACTATED RINGERS 1,000 ML IV PRN (11:31)
[2017-01-21] MEDS ORDERED: LIDOCAINE 1% INJ 20 ML (XYLOCAINE) VIAL ONE (11:56)
[2017-01-21] MEDS ORDERED: BUPIVACAINE 0.5% 30 ML (SENSORCAINE) VIAL ONE (11:56)
[2017-01-21] MEDS ORDERED: HEParin (CENTRAL IV FLUSH) 500 UNIT/5 ML SYR ONE (11:56)
[2017-01-21] MEDS ORDERED: 0.9% SODIUM CHLORIDE PF INJ 20 ML VIAL ONE (11:59)
--- NOTE | 2017-01-21 13:38 | Discharge Inst-Simple/Standard ---
Discharge Inst-Standard Patient Instructions/Follow Up Plan of Care/Instructions/FU: 2 weeks Silva Activity as Tolerated: No Discharge Diet: Regular Diet Other Inst to Patient Follow up Appt: Make appointment for 2 week. Instructions: No lifting greater than 10 pounds. No strenuous activity. May shower in 24 hours, no tub bath or soaking. Use incentive spirometer at home as directed. No Smoking Skin/Wound Care: May remove bandages in 48 hours. You have special glue over incisions it will fall off on its own. Symptoms to Report: Appetite Changes, Extremity Discoloration, Numbness/Tingling, Swelling Increased , Bleeding Excessive, Eyesight Changes, Pain Increased, Urine Color Change, Constipation(Persistent), Fever over 101 degree F, Pain/Pressure in chest, Urinating Difficulty, Cough Up/Vomit Blood, Heart Beat Irreg/Pounding, Pain/ Pressure in jaw, Vaginal Bleeding Increase, Cramps in feet or legs, Lightheadedness, Pain/Pressure in shoulder, Diarrhea(Persistent), Memory Changes Suddenly, Questions/Concerns, Weight gain consecutive days, Dizziness/ Fainting, Nausea/Vomiting, Shortness of Breath, Weight gain over 2 pounds If questions or concerns contact your physician Or seek help at emergency department. CALLUM RUANO DO Jan 21, 2017 1:38 pm
[2017-01-21] MEDS ORDERED: morphine INJ 10 MG/ML 1ML (SYR OR VIAL) ONE (13:41)
--- NOTE | 2017-01-21 13:43 | Progress Note-Pre Operative ---
Pre-Operative Progress Note H&P Reviewed The H&P was reviewed, patient examined and no changes noted. Date Seen by Provider: Jan 21, 2017 Time Seen by Provider: 12:15 Date H&P Reviewed: Jan 21, 2017 Time H&P Reviewed: 12:15 Pre-Operative Diagnosis: cervical cancer CALLUM RUANO DO Jan 21, 2017 1:43 pm
--- NOTE | 2017-01-21 13:44 | Progress Note-Post Operative ---
Post-Operative Progess Note Surgeon (s)/Xerox Machine Mechanic (s) Surgeon CALLUM RUANO DO [employer]erox Machine Mechanic: na Pre-Operative Diagnosis cervical cancer Post-Operative Diagnosis same Procedure & Operative Findings Date of Procedure 01/21/17 Procedure Performed/Findings port placement right IJ with u/s guidance Anesthesia Type mac c local Estimated Blood Loss Estimated blood loss (mL): min Specimens/Packing Specimens Removed na CALLUM RUANO DO Jan 21, 2017 1:44 pm
[2017-01-21] MEDS ORDERED: morphine INJ 10 MG/ML 1ML (SYR OR VIAL) IVP PRN (14:00)
[2017-01-21 14:05] VITALS: BP 112/70
--- NOTE | 2017-01-21 14:19 | Diagnostic Imaging Report ---
EXAMINATION: Portable upright radiograph of the chest. INDICATION: Port placement. FINDINGS: The lungs are clear. The heart size is normal. No effusion or pneumothorax. The mediastinum and joão appear unremarkable. There is a right IJ port placed. The port catheter has a curvature laterally at the upper SVC level. The tip projects at the mid to lower SVC level. The curvature is concerning for possible mass effect on the SVC from a right paratracheal lymph node or possibly catheter position within the azygos vein or a branch. It is possible that this could be a normal variation of the vein course as well. IMPRESSION: A right IJ port is placed. There is an unusual curvature laterally at the upper SVC level. This could be from an extrinsic mass effect but could also be related to the catheter position within a branch such as the azygos or internal mammary vein. Verification with a port check venogram is recommended. The findings were discussed with Dr. Ascencio at the time of dictation. Dictated by: Dictated on workstation # [id number]
[2017-01-21] MEDS ORDERED: ONDANSETRON 4 MG/2 ML (SDV) Z0FRAN ONE (14:23)
[2017-01-21] MEDS ORDERED: ONDANSETRON 4 MG/2 ML (SDV) Z0FRAN IVP ONE (14:30)
[2017-01-21 15:30] VITALS: BP 112/65
[2017-01-21 15:31] VITALS: BP 112/65
[2017-01-21] MEDS ORDERED: IOHEXOL 300 MG/ML 50 ML (OMNIPAQUE 300) VIAL IV ONE (15:45)
[2017-01-21 15:52] VITALS: BP 112/65
--- NOTE | 2017-01-21 17:04 | Diagnostic Imaging Report ---
EXAMINATION: Fluoroscopic-guided port check with digital subtraction venogram. INDICATION: Abnormal curvature of the port catheter on chest x-ray concerning for malposition of the tip. CONSENT: Informed consent was obtained from the patient. The risks, benefits, potential complications and alternatives were reviewed and all questions answered to the patient's satisfaction. CONTRAST: 50 mL of Isovue 300. FLUOROSCOPY TIME: 40 seconds Procedure: Upon injection of contrast under fluoroscopy, there is good flow through the Groshong-type tip of this catheter. There is flow in a cephalic direction within a small vein into the right brachycephalic vein into a patent SVC. AP, oblique and lateral digital subtraction venogram images are obtained and demonstrates this vein to be the right internal mammary vein. Is no evidence of leak or contrast extravasation in the soft tissues. FINDINGS: Safety Representative image of the chest was obtained and demonstrates a right IJ port with the catheter coursing into the right internal mammary vein and terminating there. There is no fracture in the catheter. IMPRESSION: The right internal jugular port catheter courses and terminates in the right internal mammary vein. Dictated by: Dictated on workstation # [id number]
--- NOTE | 2017-01-21 19:40 | Diagnostic Imaging Report ---
Intraoperative view of the chest. INDICATION: Port placement. 1 minute and 6 seconds of fluoroscopy time is provided. IMPRESSION: Right IJ port is placed with the port catheter laterally curved at the upper SVC level. It could be within a branch. The findings were discussed with Dr. Ascencio. Dictated by: Dictated on workstation # [id number]
--- NOTE | 2017-01-22 11:55 | OPERATIVE REPORT ---
DATE OF SERVICE: 01/21/2017 PREOPERATIVE DIAGNOSIS: Cervical cancer. POSTOPERATIVE DIAGNOSIS: Cervical cancer. PROCEDURE: Port placement right internal jugular vein using ultrasound guidance. SURGEON: Callum Ascencio DO. ANESTHESIA: MAC with local. ESTIMATED BLOOD LOSS: Minimal. COMPLICATIONS: None. INDICATIONS: The patient is a 26-year-old female who getting undergo chemotherapy for cervical cancer. She understands risks and benefits of procedure and wished to proceed with procedure. Consent was on chart. DESCRIPTION OF PROCEDURE: The patient was taken to the operating suite. She was prepped and draped in sterile fashion. Surgical pause was performed. Ultrasound was used to locate the right internal jugular vein. Local anesthetic was infiltrated into the area. Using micro access needle, the right internal jugular vein was accessed. Dark nonpulsatile blood was withdrawn. The syringe was removed. The micro access wire was inserted through the needle the needle was then removed. Fluoroscopy assured proper placement. A small stab incision with an 11 blade scalpel was made at the insertion site. The dilator was then advanced over the wire and the wire was then removed. The normal guidewire was inserted into the sheath, fluoroscopy assured proper placement and the sheath was then removed. The wire was then secured. Local anesthetic was then infiltrated into the right neck down to the right chest for a pocket creation and tunneling. A 15 blade scalpel was used to make a skin incision. Cautery was used to dissect down to the pectoral fascia and a pocket was created with both cautery and blunt dissection. The catheter was then tunneled from the right neck to the pocket and fluoroscopy was used to cut to length and the port was attached in the usual fashion and placed within the pocket. The port was then accessed first without any difficulty. It was first flushed with saline and then with heparin. The subcutaneous tissues were reapproximated using 3-0 Vicryl. The skin was then closed using 4-0 Vicryl in a running subcuticular fashion. The area was washed and dried. Dermabond was placed over incisions. The patient tolerated procedure well without any complications. She was taken to recovery room in stable condition. Chest x-ray pending. Job ID: [id number] DocumentID: [id number] Dictated Date: 01/21/2017 13:52:57 Tool And Equipment Rental Clerk Date: 01/22/2017 01:38:50 Dictated By: CALLUM ASCENCIO DO
== END 2017-01-21 15:52 | disposition home or self-care (01) ==
LOC: SDC 09:34
PROVIDERS: ATTEND Surgery
DX: C53.9 Malignant neoplasm of cervix uteri, unspecified (principal); I34.0 Nonrheumatic mitral (valve) insufficiency
CPT/HCPCS: 36415; 49465; 71010; 84703; 85025; 87081

== ENCOUNTER 2017-03-04 13:22 | Outpatient (RCR) | payer BC, MEDICAID ==
[2017-02-01 10:33] LABS: BASOPHILS % (AUTO) 0 % (0-10); EOSINOPHILS # (AUTO) 0.2 10^3/uL (0.0-0.3); EOSINOPHILS % (AUTO) 2 % (0-10); HEMATOCRIT 40 % (35-52); HEMOGLOBIN 13.4 G/DL (11.5-16.0); LYMPHOCYTES # (AUTO) 2.2 X 10^3 (1.0-4.0); LYMPHOCYTES % (AUTO) 24 % (12-44); MEAN CORPUSCULAR HEMOGLOBIN 30 PG (25-34); MEAN CORPUSCULAR HGB CONC 33 G/DL (32-36); MEAN CORPUSCULAR VOLUME 90 FL (80-99); MEAN PLATELET VOLUME 9.2 FL (7.4-10.4); MONOCYTES # (AUTO) 0.7 X 10^3 (0.0-1.0); MONOCYTES % (AUTO) 8 % (0-12); NEUTROPHILS % (AUTO) 66 % (42-75); PLATELET COUNT 328 10^3/uL (130-400); RED BLOOD COUNT 4.48 10^6/uL (4.35-5.85); RED CELL DISTRIBUTION WIDTH 11.7 % (10.0-14.5); WHITE BLOOD COUNT 9.1 10^3/uL (4.3-11.0)
[2017-02-01 10:52] LABS: ALANINE AMINOTRANSFERASE 45 U/L (0-55); ALBUMIN 3.9 GM/DL (3.2-4.5); ALKALINE PHOSPHATASE 136 U/L (40-136); BILIRUBIN,TOTAL 0.5 MG/DL (0.1-1.0); BUN/CREATININE RATIO 14; CALCIUM 9.4 MG/DL (8.5-10.1); CARBON DIOXIDE 24 MMOL/L (21-32); CHLORIDE 107 MMOL/L (98-107); CREATININE SERUM 0.78 MG/DL (0.60-1.30); GFR ESTIMATED > 60; GLUCOSE 87 MG/DL (70-105); MAGNESIUM 1.8 MG/DL (1.8-2.4); POTASSIUM 4.1 MMOL/L (3.6-5.0); SODIUM 139 MMOL/L (135-145); TOTAL PROTEIN 7.6 GM/DL (6.4-8.2)
[2017-02-08 11:26] LABS: BASOPHILS % (AUTO) 1 % (0-10); EOSINOPHILS # (AUTO) 0.1 10^3/uL (0.0-0.3); EOSINOPHILS % (AUTO) 2 % (0-10); HEMATOCRIT 39 % (35-52); HEMOGLOBIN 13.1 G/DL (11.5-16.0); LYMPHOCYTES % (AUTO) 20 % (12-44); MEAN CORPUSCULAR HEMOGLOBIN 30 PG (25-34); MEAN CORPUSCULAR HGB CONC 33 G/DL (32-36); MEAN CORPUSCULAR VOLUME 90 FL (80-99); MEAN PLATELET VOLUME 9.3 FL (7.4-10.4); MONOCYTES # (AUTO) 0.5 X 10^3 (0.0-1.0); MONOCYTES % (AUTO) 9 % (0-12); NEUTROPHILS # (AUTO) 3.3 X 10^3 (1.8-7.8); NEUTROPHILS % (AUTO) 69 % (42-75); PLATELET COUNT 289 10^3/uL (130-400); RED BLOOD COUNT 4.38 10^6/uL (4.35-5.85); RED CELL DISTRIBUTION WIDTH 11.4 % (10.0-14.5); WHITE BLOOD COUNT 4.8 10^3/uL (4.3-11.0)
[2017-02-08 11:49] LABS: BUN/CREATININE RATIO 16; CALCIUM 9.1 MG/DL (8.5-10.1); CARBON DIOXIDE 26 MMOL/L (21-32); CHLORIDE 106 MMOL/L (98-107); CREATININE SERUM 0.67 MG/DL (0.60-1.30); GFR ESTIMATED > 60; GLUCOSE 84 MG/DL (70-105); MAGNESIUM 1.8 MG/DL (1.8-2.4); POTASSIUM 4.1 MMOL/L (3.6-5.0); SODIUM 138 MMOL/L (135-145)
[2017-02-15 12:06] LABS: BASOPHILS % (AUTO) 0 % (0-10); EOSINOPHILS # (AUTO) 0.2 10^3/uL (0.0-0.3); EOSINOPHILS % (AUTO) 4 % (0-10); HEMATOCRIT 37 % (35-52); HEMOGLOBIN 12.7 G/DL (11.5-16.0); LYMPHOCYTES # (AUTO) 0.7 X 10^3 (1.0-4.0); LYMPHOCYTES % (AUTO) 17 % (12-44); MEAN CORPUSCULAR HEMOGLOBIN 30 PG (25-34); MEAN CORPUSCULAR HGB CONC 34 G/DL (32-36); MEAN CORPUSCULAR VOLUME 89 FL (80-99); MEAN PLATELET VOLUME 9.2 FL (7.4-10.4); MONOCYTES # (AUTO) 0.4 X 10^3 (0.0-1.0); MONOCYTES % (AUTO) 11 % (0-12); NEUTROPHILS # (AUTO) 2.6 X 10^3 (1.8-7.8); NEUTROPHILS % (AUTO) 68 % (42-75); PLATELET COUNT 193 10^3/uL (130-400); RED CELL DISTRIBUTION WIDTH 11.4 % (10.0-14.5); WHITE BLOOD COUNT 3.9 10^3/uL (4.3-11.0)
[2017-02-15 12:21] LABS: BUN/CREATININE RATIO 15; CALCIUM 9.1 MG/DL (8.5-10.1); CARBON DIOXIDE 21 MMOL/L (21-32); CHLORIDE 107 MMOL/L (98-107); CREATININE SERUM 0.68 MG/DL (0.60-1.30); GFR ESTIMATED > 60; GLUCOSE 69 MG/DL (70-105); MAGNESIUM 1.7 MG/DL (1.8-2.4); SODIUM 137 MMOL/L (135-145)
[2017-02-22 11:25] LABS: BASOPHILS % (AUTO) 1 % (0-10); EOSINOPHILS % (AUTO) 1 % (0-10); HEMATOCRIT 36 % (35-52); HEMOGLOBIN 12.4 G/DL (11.5-16.0); LYMPHOCYTES # (AUTO) 0.5 X 10^3 (1.0-4.0); LYMPHOCYTES % (AUTO) 12 % (12-44); MEAN CORPUSCULAR HEMOGLOBIN 30 PG (25-34); MEAN CORPUSCULAR HGB CONC 34 G/DL (32-36); MEAN CORPUSCULAR VOLUME 88 FL (80-99); MEAN PLATELET VOLUME 8.9 FL (7.4-10.4); MONOCYTES # (AUTO) 0.5 X 10^3 (0.0-1.0); MONOCYTES % (AUTO) 13 % (0-12); NEUTROPHILS # (AUTO) 2.9 X 10^3 (1.8-7.8); NEUTROPHILS % (AUTO) 74 % (42-75); PLATELET COUNT 147 10^3/uL (130-400); RED BLOOD COUNT 4.13 10^6/uL (4.35-5.85); RED CELL DISTRIBUTION WIDTH 11.5 % (10.0-14.5); WHITE BLOOD COUNT 3.9 10^3/uL (4.3-11.0)
[2017-02-22 11:40] LABS: BUN/CREATININE RATIO 11; CARBON DIOXIDE 24 MMOL/L (21-32); CHLORIDE 105 MMOL/L (98-107); CREATININE SERUM 0.74 MG/DL (0.60-1.30); GFR ESTIMATED > 60; GLUCOSE 86 MG/DL (70-105); MAGNESIUM 1.6 MG/DL (1.8-2.4); SODIUM 139 MMOL/L (135-145)
[2017-03-01 10:42] LABS: BASOPHILS % (AUTO) 0 % (0-10); EOSINOPHILS % (AUTO) 1 % (0-10); HEMATOCRIT 35 % (35-52); HEMOGLOBIN 12.2 G/DL (11.5-16.0); LYMPHOCYTES # (AUTO) 0.5 X 10^3 (1.0-4.0); LYMPHOCYTES % (AUTO) 16 % (12-44); MEAN CORPUSCULAR HEMOGLOBIN 30 PG (25-34); MEAN CORPUSCULAR HGB CONC 35 G/DL (32-36); MEAN CORPUSCULAR VOLUME 88 FL (80-99); MEAN PLATELET VOLUME 8.8 FL (7.4-10.4); MONOCYTES # (AUTO) 0.4 X 10^3 (0.0-1.0); MONOCYTES % (AUTO) 13 % (0-12); NEUTROPHILS # (AUTO) 2.3 X 10^3 (1.8-7.8); NEUTROPHILS % (AUTO) 71 % (42-75); PLATELET COUNT 136 10^3/uL (130-400); RED BLOOD COUNT 4.01 10^6/uL (4.35-5.85); RED CELL DISTRIBUTION WIDTH 11.9 % (10.0-14.5); WHITE BLOOD COUNT 3.3 10^3/uL (4.3-11.0)
[2017-03-01 11:06] LABS: ALANINE AMINOTRANSFERASE 37 U/L (0-55); ALBUMIN 3.9 GM/DL (3.2-4.5); ALKALINE PHOSPHATASE 94 U/L (40-136); BILIRUBIN,TOTAL 0.3 MG/DL (0.1-1.0); BUN/CREATININE RATIO 17; CALCIUM 9.2 MG/DL (8.5-10.1); CARBON DIOXIDE 23 MMOL/L (21-32); CHLORIDE 106 MMOL/L (98-107); CREATININE SERUM 0.72 MG/DL (0.60-1.30); GFR ESTIMATED > 60; GLUCOSE 80 MG/DL (70-105); POTASSIUM 4.2 MMOL/L (3.6-5.0); SODIUM 136 MMOL/L (135-145); TOTAL PROTEIN 6.8 GM/DL (6.4-8.2)
[2017-03-01 12:17] LABS: CLARITY,URINE CLEAR; COLOR,URINE YELLOW; GLUCOSE, URINE (UA) NEGATIVE (NEGATIVE); KETONES,URINE NEGATIVE (NEGATIVE); LEUKOCYTE ESTERASE ,URINE 3+ (NEGATIVE); NITRITE,URINE POSITIVE (NEGATIVE); PH,URINE 5 (5-9); PROTEIN,URINE 2+ (NEGATIVE); UROBILINOGEN,URINE 8 MG/DL (NORMAL)
[2017-03-01 12:32] LABS: BACTERIA,URINE FEW /HPF; BILIRUBIN,URINE 3+ (NEGATIVE); WBC,URINE >100 /HPF
[~2017-03-04] VITALS: Ht 167.6 cm; Wt 82.1 kg
[~2017-03-04 13:22] MED LIST: CISPLATIN IV SCH; FAMOTIDINE 20MG/2ML IV (CANCER CTR) IV SCH; FOSAPREPITANT DIMEGLUMINE 150 MG in NS (IVPB) CANCER CENTER ONLY 150 ML IV SCH; MAGNESIUM SULFATE IV SCH; MANNITOL IV SCH; NS IV 1000 ML (CANCER CTR) IV SCH; PALONOSETRON 0.25 MG, DEXAMETHASONE 10 MG/NS 50 ML IVPB IV PRN; PALONOSETRON 0.25 MG/5 ML IV PRN; [UNRECOGNIZED DRUG - OTHER] IV SCH; diphenhydrAMINE 25 MG TAB (BENADRYL) CANCER CENTER PO SCH
== END 2017-04-20 | disposition home or self-care (01) ==
LOC: ONC 13:22
PROVIDERS: ATTEND Internal Medicine Hematology & Oncology
DX: Z51.0 Encounter for antineoplastic radiation therapy (principal); C53.9 Malignant neoplasm of cervix uteri, unspecified
CPT/HCPCS: 36591; 77300; 77301; 77334; 77336; 77338; 77386; 77470; 80048; 80053; 81000; 83735; 85025; 87077; 87088; 87186; 96367; 96374; 96375; 96413; 96415; 99213; 99215

== ENCOUNTER 2017-05-12 09:27 | Outpatient (RCR) | payer BC, MEDICAID ==
[2017-05-12 09:53] LABS: HEMATOCRIT 36 % (35-52); HEMOGLOBIN 12.9 G/DL (11.5-16.0); MEAN CORPUSCULAR HEMOGLOBIN 33 PG (25-34); MEAN CORPUSCULAR HGB CONC 36 G/DL (32-36); MEAN CORPUSCULAR VOLUME 92 FL (80-99); NEUTROPHILS % (AUTO) 60 % (42-75); PLATELET COUNT 224 10^3/uL (130-400); RED BLOOD COUNT 3.94 10^6/uL (4.35-5.85); RED CELL DISTRIBUTION WIDTH 12.3 % (10.0-14.5); WHITE BLOOD COUNT 3.5 10^3/uL (4.3-11.0)
[2017-05-12 09:54] LABS: BASOPHILS % (AUTO) 1 % (0-10); EOSINOPHILS # (AUTO) 0.3 10^3/uL (0.0-0.3); EOSINOPHILS % (AUTO) 7 % (0-10); LYMPHOCYTES # (AUTO) 0.6 X 10^3 (1.0-4.0); LYMPHOCYTES % (AUTO) 18 % (12-44); MONOCYTES # (AUTO) 0.5 X 10^3 (0.0-1.0); MONOCYTES % (AUTO) 14 % (0-12); NEUTROPHILS # (AUTO) 2.1 X 10^3 (1.8-7.8)
[2017-05-12 10:17] LABS: ALANINE AMINOTRANSFERASE 44 U/L (0-55); ALKALINE PHOSPHATASE 103 U/L (40-136); BILIRUBIN,TOTAL 0.5 MG/DL (0.1-1.0); BUN/CREATININE RATIO 16; CALCIUM 9.4 MG/DL (8.5-10.1); CARBON DIOXIDE 20 MMOL/L (21-32); CHLORIDE 110 MMOL/L (98-107); GFR ESTIMATED > 60; GLUCOSE 90 MG/DL (70-105); POTASSIUM 4.2 MMOL/L (3.6-5.0); SODIUM 140 MMOL/L (135-145); TOTAL PROTEIN 7.4 GM/DL (6.4-8.2)
== END 2017-07-22 | disposition home or self-care (01) ==
LOC: ONC 09:27
PROVIDERS: ATTEND Internal Medicine Hematology & Oncology
DX: C53.9 Malignant neoplasm of cervix uteri, unspecified (principal)
CPT/HCPCS: 36591; 80053; 85025; 86304; 99213